=== PATIENT | female | born 1995 | race Caucasian/White ===

== ENCOUNTER 2021-01-07 12:54 | Outpatient (REF) | payer OTHER, SELFPAY ==
[2021-01-09 18:07] LABS: C. trachomatis RNA TMA NOT DETECTED (NOT DETECTED); N. gonorrhoeae RNA TMA NOT DETECTED (NOT DETECTED)
== END 2021-01-07 12:55 | disposition home or self-care (01) ==
LOC: HO.LAB 12:54
PROVIDERS: PCP Pediatrics; Visit Provider Advanced Practice Midwife
DX: Z01.419 Encounter for gynecological examination (general) (routine) without abnormal findings (principal); Z11.3 Encounter for screening for infections with a predominantly sexual mode of transmission
CPT/HCPCS: 36415; 87491; 87591

== ENCOUNTER 2021-05-27 12:57 | Outpatient (REF) | payer OTHER, SELFPAY ==
[2021-05-27 16:10] LABS: CT PCR NOT DETECTED (Not Detect.); NG PCR NOT DETECTED (Not Detect.)
[2021-05-28 08:13] LABS: BV Int Neg Control Negative (Negative); BV Int Pos Control Positive (Positive)
== END 2021-05-27 12:58 | disposition home or self-care (01) ==
LOC: HO.LAB 12:57
PROVIDERS: PCP Pediatrics; Visit Provider Advanced Practice Midwife
DX: Z30.431 Encounter for routine checking of intrauterine contraceptive device (principal); R10.2 Pelvic and perineal pain
CPT/HCPCS: 87480; 87491; 87510; 87591; 87660

== ENCOUNTER 2021-06-17 13:59 | Outpatient (REF) | payer OTHER, SELFPAY ==
--- NOTE | ~2021-06-17 | US_ITS ---
EXAMINATION: US PELVIS TRANSVAGINAL CLINICAL INFORMATION: Pelvic pain. COMPARISON: 06/29/2020 TECHNIQUE: Transcutaneous and transvaginal pelvic ultrasound. Transvaginal scanning was performed after voiding to better evaluate the endometrium and adnexa. FINDINGS: The uterus measures 7.8 x 3.7 x 5.2 cm. The uterus is anteverted. No suspicious abnormalities region of the cervix. The uterine contour is smooth. There is an IUD in place. No focal abnormalities within the myometrium. The right ovary measures approximately 2.8 x 1.6 x 2.0 cm. The calculated right ovarian volume is approximately 4.6 mL. There are no suspicious right adnexal findings. The left ovary measures 4.2 x 2.4 x 3.9 cm. The calculated left ovarian volume is approximately 21 mL. There is a 1.8 x 1.4 x 1.9 cm corpus luteal cyst present. No significant free pelvic fluid. US/US pelvic and transvaginal IMPRESSION: IUD in place appearing unremarkable. Left ovarian corpus luteum cyst.
== END 2021-06-17 14:00 | disposition home or self-care (01) ==
LOC: HO.HMGCX 13:59
PROVIDERS: Visit Provider Advanced Practice Midwife
DX: R10.2 Pelvic and perineal pain (principal)
CPT/HCPCS: 76830; 76856

== ENCOUNTER → 2021-07-01 11:21 | Outpatient (BNVA) | payer OTHER, SELFPAY | PROVIDERS: PCP Pediatrics; Visit Provider Advanced Practice Midwife ==

== ENCOUNTER → 2021-07-05 13:24 | Outpatient (BNVA) | payer OTHER, SELFPAY | PROVIDERS: PCP Pediatrics; Visit Provider Advanced Practice Midwife | DX: Z30.432 Encounter for removal of intrauterine contraceptive device (principal); R10.2 Pelvic and perineal pain; N73.9 Female pelvic inflammatory disease, unspecified | CPT/HCPCS: 58301; 96372; J0696 ==

== ENCOUNTER 2022-02-04 13:43 | Outpatient (REF) | payer OTHER, SELFPAY ==
[2022-02-05 11:11] LABS: BV Int Neg Control Negative (Negative); BV Int Pos Control Positive (Positive)
[2022-02-05 13:10] LABS: CT PCR DETECTED (Not Detect.); NG PCR DETECTED (Not Detect.)
== END 2022-02-04 13:44 | disposition home or self-care (01) ==
LOC: HO.LAB 13:43
PROVIDERS: PCP Pediatrics; Visit Provider Advanced Practice Midwife
DX: Z01.411 Encounter for gynecological examination (general) (routine) with abnormal findings (principal); N73.9 Female pelvic inflammatory disease, unspecified; Z20.2 Contact with and (suspected) exposure to infections with a predominantly sexual mode of transmission
CPT/HCPCS: 81003; 81025; 87480; 87491; 87510; 87591; 87660; 96372; 99212; J0696

== ENCOUNTER 2022-02-24 09:01 | Outpatient (REF) | payer OTHER, SELFPAY ==
[2022-02-25 12:25] LABS: CT PCR DETECTED (Not Detect.); NG PCR DETECTED (Not Detect.)
[2022-02-25 13:16] LABS: BV Int Neg Control Negative (Negative); BV Int Pos Control Positive (Positive)
== END 2022-02-24 09:02 | disposition home or self-care (01) ==
LOC: HO.LAB 09:01
PROVIDERS: Visit Provider Advanced Practice Midwife
DX: Z01.411 Encounter for gynecological examination (general) (routine) with abnormal findings (principal); R10.2 Pelvic and perineal pain; N73.9 Female pelvic inflammatory disease, unspecified; Z20.2 Contact with and (suspected) exposure to infections with a predominantly sexual mode of transmission; A74.9 Chlamydial infection, unspecified; A54.9 Gonococcal infection, unspecified
CPT/HCPCS: 81003; 81025; 87480; 87491; 87510; 87591; 87660; 99212

== ENCOUNTER 2022-03-02 12:52 | Outpatient (REF) | payer OTHER, SELFPAY ==
[2022-03-02 15:48] LABS: Syphilis Screen Nonreactive (Nonreactive)
[2022-03-03 08:25] LABS: ~HepC Num1 0.19 S/CO (0.00-0.79); ~Hepatitis C Antibody Nonreactive (Nonreactive)
[2022-03-03 08:31] LABS: HBsAGNum1 0.13 S/CO (0.00-0.99); HIV AB/AG Nonreactive (Nonreactive); HIV Num 1 0.07 S/CO (0.00-0.99); Hepatitis B Surface Antigen Negative (Negative)
== END 2022-03-02 12:53 | disposition home or self-care (01) ==
LOC: HO.LAB 12:52
PROVIDERS: Visit Provider Advanced Practice Midwife
DX: A54.9 Gonococcal infection, unspecified (principal); A74.9 Chlamydial infection, unspecified; B96.89 Other specified bacterial agents as the cause of diseases classified elsewhere; N73.9 Female pelvic inflammatory disease, unspecified; N76.0 Acute vaginitis
CPT/HCPCS: 36415; 81025; 86780; 86803; 87071; 87077; 87086; 87147; 87185; 87205; 87340; 87389; 96372; 99212; J0696

== ENCOUNTER 2022-04-14 14:09 | Outpatient (REF) | payer OTHER, SELFPAY ==
[2022-04-15 02:31] LABS: CT PCR NOT DETECTED (Not Detect.); NG PCR NOT DETECTED (Not Detect.)
== END 2022-04-14 14:10 | disposition home or self-care (01) ==
LOC: HO.LAB 14:09
PROVIDERS: Visit Provider Obstetrics & Gynecology
DX: A74.9 Chlamydial infection, unspecified (principal); A54.9 Gonococcal infection, unspecified
CPT/HCPCS: 87491; 87591; 99212

== ENCOUNTER 2022-06-20 16:33 | Emergency (ER) | payer OTHER, SELFPAY ==
--- NOTE | ~2022-06-20 | XR_ITS ---
EXAMINATION: XR ANKLE, RIGHT CLINICAL INFORMATION: Right ankle pain after fall. COMPARISON: None TECHNIQUE: AP, lateral, and mortise views of the right ankle. FINDINGS: There is lateral malleolar soft tissue swelling. The ankle mortise and subtalar joints are normal. There is no visible acute fracture, dislocation. Small bone fragment tip of posterior malleolus likely old avulsion injury fragment XR/XR ankle RT 2V IMPRESSION: Lateral malleolar soft tissue swelling most likely ligamentous injury. No visible acute fracture or dislocation seen.
[2022-06-20 18:07] VITALS: BP 105/73; PULSE 78; RESP 18; TEMP 36.3; O2SAT 100; BMI 19.5
--- NOTE | 2022-06-20 19:56 | ED.LOWEXIN ---
HPI - Extremity Injury (Lower) General Chief Complaint: Extremity Injury, Lower Stated Complaint: sprain ankle? right Time Seen by Provider: 06/20/22 19:56 Source: patient Mode of arrival: ambulatory Limitations: no limitations History of Present Illness HPI Narrative: 26-year-old female presents with right-sided ankle pain status post trip and fall and rolling her ankle, patient tells me she was going down the stairs, she rolled her ankle while going down the stairs fell down a few stairs. She tells me she did not hit her head or lose consciousness when this happened. She is not on blood thinners. Since the fall she has been having significant pain and swelling to the right lateral aspect of ankle worsening over the past 2 days. Denies numbness however reports intermittent tingling. Patient has been able to bear weight on the right lower extremity without difficulty over the past 2 days. MD complaint: ankle injury Related Data Previous Rx's Medication Instructions Recorded ibuprofen 600 mg tablet 600 mg PO Q6H PRN pain #100 tabs 02/04/22 ondansetron 4 mg disintegrating 4 mg PO Q8H PRN nausea and 02/04/22 tablet vomiting #60 tabs doxycycline hyclate 100 mg capsule 100 mg PO BID 14 days #28 caps 03/02/22 metronidazole 500 mg tablet 500 mg PO BID 14 days #28 tabs 03/02/22 Allergies Allergy/AdvReac Type Severity Reaction Status Date / Time Seasonal Allergies Allergy Runny Nose Verified 06/20/22 18:10 Review of Systems Review of Systems: Constitutional : No Weight loss, No Fever, No Chills, No Fatigue, No Malaise ENT/Mouth : No sore throat, No Rhinorrhea Eyes: No Eye Pain, No Swelling, No Redness Cardiovascular : No Chest Pain, No SOB, No Dyspnea on Exertion, No Orthopnea, No Edema, No Palpitations Respiratory : No Cough, No Sputum, No Wheezing Gastrointestinal : No Nausea, No Vomiting, No Diarrhea, No Constipation, No abdominal Pain, No Hematochezia, No Melena Genitourinary : No Dysuria, No Urinary Frequency, No Hematuria, Musculoskeletal : + joint pain, No Myalgias, + Joint Swelling Skin : No Skin Lesions, No rash Neuro : No Weakness, No Numbness, No Dizziness, No Headache All other systems reviewed and are negative Yes all other systems are reviewed and are negative PMFSH Past Medical History Attestation statement: The following information was validated with the patient. Source: old records reviewed and nursing notes reviewed Medical History ADHD IUD (intrauterine device) in place Pelvic inflammatory disease (PID) Family History Family History Father Chronic mental illness Mother Asthma Maternal Grandmother Breast cancer Maternal Grandfather HTN (hypertension) Maternal Aunt Breast cancer Social History Social History Alcohol intake: never Patient Tobacco Use Status: Never used Tobacco Advance Directives: No Advance Directives Information Provided: No Sexual orientation: Straight/Heterosexual Gender identity: Female Physical Exam Vital Signs: Vital Signs: Last Vital Signs Temp 97.4 F 06/20/22 18:07 Pulse 78 06/20/22 18:07 Resp 18 06/20/22 18:07 BP 105/73 06/20/22 18:07 Pulse Ox 100 06/20/22 18:07 O2 Del Method 06/20/22 18:07 BMI result Body Mass Index 19.5 vss Appearance: Alert.? Oriented X3.? No acute distress.? Head: Normocephalic, atraumatic, no step-offs or deformities Eyes: Pupils equal, round and reactive to light.? Neck: Normal inspection.? Neck supple.? CVS: Normal heart rate and rhythm.? Pulses normal.? Respiratory: No respiratory distress.? Breath sounds normal.? Abdomen: Soft and nontender.? Skin: Skin warm and dry.? Normal skin color.? Normal skin turgor.? Extremities: No lower extremity edema.? No calf ttp. 5/5 strength to bilateral upper and lower extremities + right ankle with swelling over lateral malleolous 2+ dorsalis pedis, posterior tibialis and anterior tibialis pulses equal bilateral. No footdrop. Normal sensory exam to lower extremities. Capillary refill less than 2 seconds to bilateral lower extremity toes. Neuro: Oriented X 3.? No motor deficit.? No sensory deficit. Patient ambulating with steady gait however limping favoring her left side. Course Reevaluation(s) Reevaluation #1: X-ray of the right ankle with lateral malleolar soft tissue swelling most likely ligamentous injury, educated patient that she will likely require an MRI of pain persist, giving her follow-up for Orthopedics. Will provider with a Aircast, crutches. Advised to return with new or worsening symptoms. At this time I feel comfortable discharge home. I did educate on ibuprofen every 6 hours, Tylenol every 4. I also went over rice with this patient. Time: 20:12 MDM - Extremity Injury (Lower) MDM Narrative Medical decision making narrative: 1953 26-year-old female presents with right ankle pain status post stripping/rolling her ankle yesterday, were now reporting pain, swelling particularly to the lateral aspect of right ankle, able to ambulate however with a limp. Denies numbness or tingling Physical examination with significant swelling over the right lateral malleolus. 2+ dorsalis pedis, posterior tibialis and anterior tibialis pulses. Normal sensory to bilateral lower extremities. Patient ambulating with steady gait however limping favoring the left side. Capillary refill less than 2 seconds to bilateral lower extremities. No footdrop. No evidence of acute ligament or tendon injury. Plan at this time is to obtain an x-ray. Medical Records Attestation: I reviewed the patient's medical records. Lab Data Attestation: I reviewed the patient's lab results. Critical Care Time Critical Care Time Critical Care Time: No Discharge Plan Discharge Clinical Impression: Ankle sprain Patient Disposition: Home, Self-Care Instructions: Ankle Sprain (ED), Crutch Instructions (ED), Sprain (ED), Ankle Stirrup Splint (ED), R.I.C.E. Treatment (ED) Additional Instructions: Take your medications as prescribed. If you were prescribed antibiotics today, it is important that you take your medication to their entirety, do not skip any doses, do not finish them early. Follow-up with your primary care provider this week. Follow orthopedics this week Return to the emergency department with new or worsening symptoms. Such as fevers, chills, chest pain, shortness of breath, nausea, vomiting, dizziness, headache, vision changes, lethargy In case of emergency call 911 You can take ibuprofen every 6 hours tylenol every 4 hours as needed for pain or discomfort Your x-ray results are below, it if you continue to have pain or discomfort may require an MRI to look at ligaments or tendons. Please follow-up with orthopedics. XR/XR ankle RT 2V IMPRESSION: Lateral malleolar soft tissue swelling most likely ligamentous injury. No visible acute fracture or dislocation seen. Prescriptions: No Action ibuprofen 600 mg tablet 600 mg PO Q6H PRN (Reason: pain) Qty: 100 0RF Rx Instructions: always take with food in stomach ondansetron 4 mg tablet,disintegrating 4 mg PO Q8H PRN (Reason: nausea and vomiting) Qty: 60 0RF doxycycline hyclate 100 mg capsule 100 mg PO BID 14 Days Qty: 28 0RF metronidazole 500 mg tablet 500 mg PO BID 14 Days Qty: 28 0RF Referrals: [facility] [place] [facility] [Provider Group] - 1 week Physician,None [Primary Care Provider] - 2 days Stand Alone Forms: Work/School Release
[2022-06-20] MEDS: Ketorolac Tromethamine 15 MG/ML VIAL 30 MG IM (20:50)
== END 2022-06-20 21:00 | disposition home or self-care (01) ==
PROVIDERS: Emergency Provider Internal Medicine
DX: S93.401A Sprain of unspecified ligament of right ankle, initial encounter (principal); W10.9XXA Fall (on) (from) unspecified stairs and steps, initial encounter; Y93.89 Activity, other specified; Y92.9 Unspecified place or not applicable; Y99.9 Unspecified external cause status
CPT/HCPCS: 73600; 96372; 99283; 99284; J1885

== ENCOUNTER → 2022-07-05 09:34 | Outpatient (BNVA) | payer OTHER, SELFPAY | PROVIDERS: Visit Provider Physician Assistant | DX: S93.401A Sprain of unspecified ligament of right ankle, initial encounter (principal); W10.9XXA Fall (on) (from) unspecified stairs and steps, initial encounter; Y93.9 Activity, unspecified; Y92.9 Unspecified place or not applicable; Y99.9 Unspecified external cause status | CPT/HCPCS: 99202 ==

== ENCOUNTER 2022-07-19 10:52 | Outpatient (REF) | payer OTHER, SELFPAY ==
[2022-07-19 15:24] LABS: CT PCR NOT DETECTED (Not Detect.); NG PCR NOT DETECTED (Not Detect.)
== END 2022-07-19 10:53 | disposition home or self-care (01) ==
LOC: HO.LNP 10:52
PROVIDERS: Visit Provider Obstetrics & Gynecology
DX: A74.9 Chlamydial infection, unspecified (principal); Z97.5 Presence of (intrauterine) contraceptive device
CPT/HCPCS: 87491; 87591; 99212

== ENCOUNTER 2023-01-19 10:59 | Outpatient (REF) | payer OTHER, SELFPAY ==
[2023-01-19 16:39] LABS: CT PCR NOT DETECTED (Not Detect.); NG PCR NOT DETECTED (Not Detect.)
[2023-01-20 10:58] LABS: BV Int Neg Control Negative (Negative); BV Int Pos Control Positive (Positive)
== END 2023-01-19 11:00 | disposition home or self-care (01) ==
LOC: HO.LNP 10:59
PROVIDERS: Visit Provider Advanced Practice Midwife
DX: Z01.419 Encounter for gynecological examination (general) (routine) without abnormal findings (principal); N73.9 Female pelvic inflammatory disease, unspecified; A74.9 Chlamydial infection, unspecified; A54.9 Gonococcal infection, unspecified; N76.0 Acute vaginitis; B96.89 Other specified bacterial agents as the cause of diseases classified elsewhere
CPT/HCPCS: 0353U; 87480; 87510; 87660; 88142

== ENCOUNTER 2023-08-25 15:22 | Outpatient (REF) | payer OTHER, SELFPAY ==
[2023-08-26 15:34] LABS: BV Int Neg Control Negative (Negative); BV Int Pos Control Positive (Positive)
== END 2023-08-25 15:23 | disposition home or self-care (01) ==
LOC: HO.LNP 15:22
PROVIDERS: Visit Provider Advanced Practice Midwife
DX: R10.2 Pelvic and perineal pain (principal); Z20.2 Contact with and (suspected) exposure to infections with a predominantly sexual mode of transmission; Z30.09 Encounter for other general counseling and advice on contraception
CPT/HCPCS: 81002; 81025; 87480; 87510; 87660; 99212

== ENCOUNTER 2023-08-25 15:22 | Outpatient (AMB) | payer OTHER, SELFPAY ==
--- NOTE | 2023-08-25 15:40 | A.OFFVIS_ITS ---
Intake Vital Signs 08/25/23 15:47 Height 5 ft Weight 86 lb BMI 16.8 BP 102/60 Intake Visit Reasons: pelvic pain Intake Note: c/o of pelvic pain x 3 days The patient agreed to use of a medical office coordinator during this encounter. Scribed for SONNY Muniz by Pat Pleitez medical office coordinator, on 08/25/2023 at 3:57 pm EST. Commercial Floor Covering Installer Required: No Information Interpreted: non-clinical & clinical Tube Bender Hand: Tube Bender Hand Present (Divya Fairchildthania SCOTT) Accompanied by: Self / Same As Patient Allergies Seasonal Allergies Allergy (Verified 08/25/23 15:48) Runny Nose Is last menstrual period known: Yes Last menstrual period: 07/29/23 HPI HPI Comments History of Present Illness Details She is here today with complaints of pelvic pain with cramping with urinating for 3 days. Reports menses is due tomorrow. Admits vaginal discharge and urinary symptoms. UPI last night with new partner; does not use BC. Regular monthly menses. LMP 07/29/23. HX of PID in 2021. 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 Sexual orientation: Straight/Heterosexual Gender identity: Female Female Reproductive History Menstrual Age of Menarche: 14 Date of last menstrual period: 07/29/23 Physical Exam Vital Signs: Last Vital Signs BP 102/60 08/25/23 15:47 BMI result Body Mass Index 16.8 Const General: cooperative, healthy appearing, comfortable, no acute distress, well de veloped, alert and awake Other: General: Yes bladder normal to palpation External Female Exam: normal external appearance and normal appearance of the urethra Speculum Exam - Vagina: normal appearance of the vagina, normal palpation and abnormal vaginal discharge yellow (pale) Speculum Exam - Cervix: normal appearance of the cervix and normal palpation Bimanual exam- vagina & uterus: normal bimanual exam, normal palpation, bladder normal to palpation and normal palpation Bimanual Exam- Adnexa, other: normal adnexae, no masses and Other (slightly tender) Results AMB Test Urine AMB Test Urine Negative Last Edit by Divya Munson, [facility] on 15:57 AMB Urinalysis Dipstick UR Leukocytes Negative Last Edit by Divya Fairchildero, ASSOCIATE PROFESSOR OF PHILOSOPHY on 08/25/23 15:58 UR Nitrite Negative Last Edit by Divya Munson, ASSOCIATE PROFESSOR OF PHILOSOPHY on 08/25/23 15:58 UR Urobilinogen Normal Last Edit by Divya Fairchildero, [facility] on 08/25/23 15:58 UR Protein Negative Last Edit by Divya Fairchildero, [facility] on 08/25/23 15:58 UR Ph 5.5 Last Edit by Divya Fairchildero, [facility] on 08/25/23 15:58 UR Blood Negative Last Edit by Divya Fairchildero, [facility] on 08/25/23 15:58 UR Specific [place] 1.030 Last Edit by Divya Munson, [facility] on 08/25/23 15:58 UR Ketone Negative Last Edit by Divya Munson, ASSOCIATE PROFESSOR OF PHILOSOPHY on 08/25/23 15:58 UR Bilirubin Negative Last Edit by Divya Munson, [facility] on 08/25/23 15:58 UR Glucose Negative Last Edit by Divya Munson, [facility] on 08/25/23 15:58 Results Reviewed Results Reviewed: Laboratory Last Values Urine pH (Clinic) 5.5 08/25/23 15:57 Specific [place] (Clinic) 1.030 08/25/23 15:57 Ur Protein (Clinic) Negative 08/25/23 15:57 Ur Ketones (Clinic) Negative 08/25/23 15:57 Urine Blood (Clinic) Negative 08/25/23 15:57 Urine Nitrite Negative 08/25/23 15:57 Urine Bilirubin (Clinic) Negative 08/25/23 15:57 Urobilinogen (Clinic) Normal 08/25/23 15:57 Leukocyte Esterase (Clinic) Negative 08/25/23 15:57 Urine Glucose (Clinic) Negative 08/25/23 15:57 Tst Clinic Negative 08/25/23 15:57 Assessment & Plan Assessment & Plan (1) Pelvic pain: Code(s): R10.2 - Pelvic and perineal pain Plan: Discussed: BV testing and GC/CT panel done today. STD blood work ordered. Await results and treat accordingly. If experiencing severe pain or fever/flu-like symptoms report to ED. If missed menses by next week take at home test. RTO to office if worsening symptoms. All of her questions and concerns were addressed to the best of my ability and shared decision making. She is agreeable to plan of care. (2) control counseling: Code(s): Z30.09 - Encounter for other general counseling and advice on contraception Plan: Advised to use condoms for STD and prevention. Schedule BC consult. Orders: Orders AMB Urinalysis Dipstick Today Z32.02 - Encounter for test, result negative Bacterial Vaginosis Panel Today R10.2 - Pelvic and perineal pain, Z20.2 - Contact with and (suspected) exposure to infections with a predominantly sexual mode of transmission Hepatitis C Antibody Today Z20.2 - Contact with and (suspected) exposure to infections with a predominantly sexual mode of transmission Syphilis Screen Today Z20.2 - Contact with and (suspected) exposure to infections with a predominantly sexual mode of transmission AMB HCG Urine Test Today Z32.02 - Encounter for test, result negative CT NG by PCR Today R10.2 - Pelvic and perineal pain, Z20.2 - Contact with and (suspected) exposure to infections with a predominantly sexual mode of transmission Hepatitis B Core Antibody Today Z20.2 - Contact with and (suspected) exposure to infections with a predominantly sexual mode of transmission HIV Ab/Ag Today Z20.2 - Contact with and (suspected) exposure to infections with a predominantly sexual mode of transmission Coding Level of Care Code Est Pt Level 3 (14941) Diagnoses Pelvic pain R10.2 control counseling Z30.09
[2023-08-25 15:47] VITALS: BP 102/60; BMI 16.8
== END 2023-08-25 16:13 | disposition home or self-care (01) ==
PROVIDERS: Visit Provider Advanced Practice Midwife
DX: R10.2 Pelvic and perineal pain (principal); Z30.09 Encounter for other general counseling and advice on contraception; Z32.02 Encounter for pregnancy test, result negative
CPT/HCPCS: 99213

== ENCOUNTER 2023-08-25 16:17 | Outpatient (REF) | payer OTHER, SELFPAY ==
[2023-08-28 07:54] LABS: Syphilis Screen Nonreactive (Nonreactive)
[2023-08-28 08:14] LABS: HBsAGNum1 0.38 S/CO (0.00-0.99); Hepatitis B Surface Antigen Negative (Negative)
[2023-08-28 08:17] LABS: HBc Num1 0.05 S/CO (0.00-0.79); HIV AB/AG Nonreactive (Nonreactive); HIV Num 1 0.07 S/CO (0.00-0.99); Hepatitis B Core Antibody Nonreactive (Nonreactive); ~HepC Num1 0.09 S/CO (0.00-0.79); ~Hepatitis C Antibody Nonreactive (Nonreactive)
== END 2023-08-25 16:18 | disposition home or self-care (01) ==
LOC: HO.LAB 16:17
PROVIDERS: Advanced Practice Midwife; Visit Provider Advanced Practice Midwife
DX: N73.9 Female pelvic inflammatory disease, unspecified (principal); A74.9 Chlamydial infection, unspecified; A54.9 Gonococcal infection, unspecified; N76.0 Acute vaginitis; B96.89 Other specified bacterial agents as the cause of diseases classified elsewhere; Z20.2 Contact with and (suspected) exposure to infections with a predominantly sexual mode of transmission
CPT/HCPCS: 36415; 86704; 86780; 86803; 87340; 87389

== ENCOUNTER 2023-09-21 14:37 | Outpatient (AMB) | payer OTHER, SELFPAY ==
[2023-09-21 14:51] VITALS: BP 112/76; BMI 19.1
--- NOTE | 2023-09-21 14:51 | MHC.OFFVIS ---
Intake Vital Signs 09/21/23 14:51 Height 5 ft Weight 98 lb BMI 19.1 BP 112/76 Intake Visit Reasons: pelvic pain/AUB/30 min Intake Note: Scribed for Bela Ibanez CNM by [facility] scribe, on 09/21/2023 at 3:13 PM, EST. Cone Baker Machine: Cone Baker Machine Present (Silvia) Allergies Seasonal Allergies Allergy (Verified 09/21/23 15:02) Runny Nose Is last menstrual period known: Yes Last menstrual period: 09/11/23 HPI HPI Comments History of Present Illness Details The patient is a 27 year old presenting with pelvic pain and irregular menses Her irregular menses just started this month. She is concerned for PCOS, she also reports acne. She reports having two menses for this month, with prolonged bleeding. She denies any UPI in the last two weeks. She is not taking anything for BC at this time. Would like to be started on oral contraceptives. She denies any contraindications to control such as: migraines with aura, history of DVT or pulmonary emboli, high blood pressure, liver disease, thrombolic disorders, Lupus, +JERRY, or smoking. 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 Sexual orientation: Straight/Heterosexual Gender identity: Female Female Reproductive History Menstrual Age of Menarche: 14 Date of last menstrual period: 09/11/23 Review of Systems Const All systems reviewed & are unremarkable except as noted in HPI and below Physical Exam Vital Signs: Last Vital Signs BP 112/76 09/21/23 14:51 BMI result Body Mass Index 19.1 Const General: cooperative, healthy appearing and no acute distress Orientation/consciousness: patient oriented x3 GI Inspection: Yes normal to inspection Palpation (GI): Soft to palpation and Other GI palpation findings present (Nontender) Rectal Exam - Female: visual inspection normal General: Yes bladder normal to palpation External Female Exam: normal appearance of the urethra Speculum Exam - Vagina: normal appearance of the vagina, normal palpation and normal vaginal discharge Speculum Exam - Cervix: normal appearance of the cervix and normal palpation Bimanual exam- vagina & uterus: normal bimanual exam, normal palpation, uterine size normal, bladder normal to palpation, normal palpation, uterine shape normal and non-tender Bimanual Exam- Adnexa, other: normal adnexae and Other (cystic fullness in right adnexa, slightly tender) Neuro General: patient oriented x3 Results AMB Urinalysis, Automated UA Leukoctes 0 Marivel/uL Last Edit by Adelina Rodriguez Sofia on 09/21/23 15:11 UA Nitrite Negative Last Edit by Adelina Rodriguez [facility] on 09/21/23 15:11 UA Urobilinogen 0 mg/dL Last Edit by Adelina Rodriguez [facility] on 09/21/23 15:11 UA Protein 0 mg/dL Last Edit by Adelina Rodriguez [facility] on 09/21/23 15:11 UA pH 7.0 Last Edit by Adelina Rodriguez [facility] on 09/21/23 15:11 UA Blood 2 Dangelo/uL Last Edit by Adelina Rodriguez [facility] on 09/21/23 15:11 UA Specific [place] 1.010 Last Edit by Adelina Rodriguez [facility] on 09/21/23 15:11 UA Ketone Negative Last Edit by Adelina Rodriguez Sofia on 09/21/23 15:11 UA Bilirubin 0 mg/dL Last Edit by Adelina Rodriguez [facility] on 09/21/23 15:11 UA Glucose 0 mg/dL Last Edit by Adelina Rodriguez Sofia on 09/21/23 15:11 AMB Test Urine AMB Test Urine Negative Last Edit by Adelina Rodriguez [facility] on 09/21/23 15:11 Results Reviewed Results Reviewed: Laboratory Last Values Urine pH (Auto) 7.0 09/21/23 15:09 Specific [place] (Auto) 1.010 09/21/23 15:09 Urine Protein (Auto) 0 mg/dL 09/21/23 15:09 Glucose (UA)(Auto) 0 mg/dL 09/21/23 15:09 Urine Ketones (Auto) Negative 09/21/23 15:09 Urine Blood (Auto) 2 Dangelo/uL 09/21/23 15:09 Urine Nitrite (Auto) Negative 09/21/23 15:09 Urine Bilirubin (Auto) 0 mg/dL 09/21/23 15:09 Urine Urobilinogen (Auto) 0 mg/dL 09/21/23 15:09 Leukocyte Esterase (Auto) 0 Marivel/uL 09/21/23 15:09 Tst Clinic Negative 09/21/23 15:09 Assessment & Plan Assessment & Plan (1) Pelvic pain in female: Code(s): R10.2 - Pelvic and perineal pain Plan: Rx for Ultrasound due to irregular menses and right sided pelvic fullness. Work up for PCOS with labs and ultrasound. All questions and concerns addressed to the best of my ability. She is agreeable to the plan of care. RTO for test results in person. If any increase in sever pain report to the ED for further evaluation, use of OTC self help measures if needed including a heating pad. (2) Irregular menstrual cycle: Code(s): N92.6 - Irregular menstruation, unspecified (3) control counseling: Code(s): Z30.09 - Encounter for other general counseling and advice on contraception Plan: Control Counseling Use and side effects of control: Instructed to start the pill within the first 5 days of the menstrual period. Recommended to take pill at same time every day and with food to prevent stomach upset. Switch to bedtime intake with food if still experiencing nausea. Consider setting the cell phone for alerts as a reminder to take the pill at the same time. Use a back up method (condoms or abstinence if needed) if any late or missed doses until the end of the pill pack. Take the dose as soon as possible, and take your regular pill on time. If you miss the pill often, then consider another option of control. Always use condoms for STI prevention if indicated. Instructed patient to take for at least 3 months the body is acclimated to it. Most side effects go away with time in the first three months. Warnings: go to ED if and loss of vision/blindness, severe headache, chest pain or difficulty breathing, severe abdominal pain, or any pain or swelling in an extremity. Return in 3 months for pill check, or sooner if any concerns. All of her questions and concerns were addressed to the best of my ability and shared decision making. She is agreeable to plan of care. Orders: Orders AMB Urinalysis Automated Today N93.9 - Abnormal uterine and vaginal bleeding, unspecified, R10.2 - Pelvic and perineal pain Testosterone, Free/Total Today L70.9 - Acne, unspecified, N92.6 - Irregular menstruation, unspecified 17 Hydroxyprogesterone Today L70.9 - Acne, unspecified, N92.6 - Irregular menstruation, unspecified Prolactin Today L70.9 - Acne, unspecified, N92.6 - Irregular menstruation, unspecified DHEA Sulfate Today L70.9 - Acne, unspecified, N92.6 - Irregular menstruation, unspecified Thyroid Stimulating Hormone Today L70.9 - Acne, unspecified, N92.6 - Irregular menstruation, unspecified AMB HCG Urine Test Today N93.9 - Abnormal uterine and vaginal bleeding, unspecified, R10.2 - Pelvic and perineal pain US pelvic and transvaginal Today R10.2 - Pelvic and perineal pain, R19.00 - Intra-abdominal and pelvic swelling, mass and lump, unspecified site Bacterial Vaginosis Panel Today L70.9 - Acne, unspecified, N92.6 - Irregular menstruation, unspecified, N93.9 - Abnormal uterine and vaginal bleeding, unspecified, R10.2 - Pelvic and perineal pain CT NG by PCR Today L70.9 - Acne, unspecified, N92.6 - Irregular menstruation, unspecified, N93.9 - Abnormal uterine and vaginal bleeding, unspecified, R10.2 - Pelvic and perineal pain Coding Level of Care Code Est Pt Level 4 (92085) Diagnoses Pelvic pain in female R10.2 Irregular menstrual cycle N92.6 control counseling Z30.09
== END 2023-09-21 15:47 | disposition home or self-care (01) ==
PROVIDERS: Visit Provider Advanced Practice Midwife
DX: R10.2 Pelvic and perineal pain (principal); N92.6 Irregular menstruation, unspecified; Z30.09 Encounter for other general counseling and advice on contraception; N93.9 Abnormal uterine and vaginal bleeding, unspecified
CPT/HCPCS: 99214

== ENCOUNTER 2023-09-21 14:37 | Outpatient (REF) | payer OTHER, SELFPAY | END 2023-09-21 14:38 | disposition home or self-care (01) | LOC: HO.LAB 14:37 | PROVIDERS: Visit Provider Advanced Practice Midwife | DX: R10.2 Pelvic and perineal pain (principal); N92.6 Irregular menstruation, unspecified; L70.9 Acne, unspecified; R19.00 Intra-abdominal and pelvic swelling, mass and lump, unspecified site; N93.9 Abnormal uterine and vaginal bleeding, unspecified; Z30.09 Encounter for other general counseling and advice on contraception; Z32.00 Encounter for pregnancy test, result unknown | CPT/HCPCS: 81003; 81025; 99212 ==

== ENCOUNTER 2023-09-21 15:21 | Outpatient (REF) | payer OTHER, SELFPAY | END 2023-09-21 15:22 | disposition home or self-care (01) | LOC: HO.LNP 15:21 | PROVIDERS: Visit Provider Advanced Practice Midwife | DX: Z13.89 Encounter for screening for other disorder (principal) ==

== ENCOUNTER 2023-09-21 15:38 | Outpatient (REF) | payer OTHER, SELFPAY ==
[2023-09-21 16:58] LABS: Thyroid Stimulating Hormone 4.44 uIU/mL (0.32-4.0)
[2023-09-22 08:07] LABS: Syphilis Screen Nonreactive (Nonreactive)
[2023-09-22 08:08] LABS: HIV AB/AG Nonreactive (Nonreactive); HIV Num 1 0.06 S/CO (0.00-0.99); ~HepC Num1 0.08 S/CO (0.00-0.79); ~Hepatitis C Antibody Nonreactive (Nonreactive)
[2023-09-22 10:57] LABS: CT PCR NOT DETECTED (Not Detect.); NG PCR NOT DETECTED (Not Detect.)
[2023-09-22 13:14] LABS: BV Int Neg Control Negative (Negative); BV Int Pos Control Positive (Positive)
[2023-09-22 18:19] LABS: DHEA Sulfate 115 mcg/dL (14-349); Prolactin 10.5 ng/mL
[2023-09-26 14:14] LABS: Testosterone, Free 3.1 pg/mL (0.1-6.4); Testosterone, Total 23 ng/dL (2-45)
== END 2023-09-21 15:39 | disposition home or self-care (01) ==
LOC: HO.LAB 15:38
PROVIDERS: Advanced Practice Midwife; Visit Provider Advanced Practice Midwife
DX: Z01.419 Encounter for gynecological examination (general) (routine) without abnormal findings (principal); N73.9 Female pelvic inflammatory disease, unspecified; A74.9 Chlamydial infection, unspecified; A54.9 Gonococcal infection, unspecified; N76.0 Acute vaginitis; B96.89 Other specified bacterial agents as the cause of diseases classified elsewhere; R10.2 Pelvic and perineal pain; N93.9 Abnormal uterine and vaginal bleeding, unspecified; L70.9 Acne, unspecified; N92.6 Irregular menstruation, unspecified; Z20.2 Contact with and (suspected) exposure to infections with a predominantly sexual mode of transmission
CPT/HCPCS: 0353U; 36415; 82627; 83498; 84146; 84402; 84403; 84443; 86780; 86803; 87389; 87480; 87510; 87660

== ENCOUNTER 2023-09-22 12:00 | Outpatient (AMB) | payer OTHER, SELFPAY ==
--- NOTE | 2023-09-22 12:12 | MHC.OFFWIV ---
Intake Vital Signs 09/22/23 12:14 Height 5 ft Weight 94 lb 6 oz BMI 18.4 BP 122/74 Blood Pressure Location Rt brachial Position Sitting Pulse 74 Pulse Source Pulse Oximeter Pulse Oximetry (%) 97 Oxygen Delivery Method Room Air Intake Visit Reasons: EST/chest pain (lobby) Intake Note: pt is here for c.o chest pain Monday, states she does not currently have chest pain only happened on monday. Patient Tobacco Use Status: Never used Tobacco Allergies Seasonal Allergies Allergy (Verified 09/22/23 12:16) Runny Nose Do you need a note to return to daycare/school/sports/work: Yes HPI HPI Comments History of Present Illness Details This is a 27-year-old female with no significant past medical history who presents to the office today for sick visit. Patient complaining of an episode of chest pain that occurred 2 nights ago. Patient states that she was today at the kitchen table eating dinner when she started to develop substernal chest pain without radiation associated shortness of breath, nausea, and diaphoresis. She states she was feeling slightly anxious as she has had a lot of life stressors lately. She states this lasted for several minutes and resolved spontaneously without intervention. Patient states she has not had any further episodes of chest pain since then. She states she called her OBGYN who told her she could have had a blood clot, which made her anxious so she came for further evaluation and management. Patient denies any history of hypertension, hyperlipidemia, or diabetes mellitus. Her mother at bedside reports a family history of heart disease. Patient has had no prior episodes of chest pain and has had no episodes of chest pain since 2 nights ago. Patient does not utilize estrogen therapy at this time. She has had no recent travel, surgeries, or immobilization. She has had no lower extremity swelling. [facility] Medical History Pelvic inflammatory disease (PID) ADHD Family History Father Chronic mental illness Mother Asthma Maternal Grandmother Breast cancer Maternal Grandfather HTN (hypertension) Maternal Aunt Breast cancer Social History Alcohol intake: current Alcohol intake frequency: holidays/special occasions only Patient Tobacco Use Status: Never used Tobacco Current occupational status: employed Current occupation: [employer] Sexual orientation: Straight/Heterosexual Gender identity: Female Female Reproductive History Menstrual Age of Menarche: 14 Review of Systems Const All systems reviewed & are unremarkable except as noted in HPI and below Reports no additional complaints Eyes Reports no additional complaints ENT Reports no additional complaints Card Reports no additional complaints Resp Reports no additional complaints GI Reports no additional complaints Reports no additional complaints Musc Reports no additional complaints Skin/Breast Reports system reviewed and no additional complaints, except as documented Neuro Reports no additional complaints Psych Reports no additional complaints Endo Reports no additional complaints Sebastián/Lymph Reports no additional complaints Aller/Immun Reports no additional complaints Physical Exam Vital Signs: Last Vital Signs Pulse 74 09/22/23 12:14 BP 122/74 09/22/23 12:14 Pulse Ox 97 09/22/23 12:14 Oxygen Delivery Method Room Air 09/22/23 12:14 BMI result Body Mass Index 18.4 Const Other: Vital signs reviewed. Constitutional: Non-toxic appearing. No acute distress. Well-developed and well-nourished. HEENT: Normocephalic and atraumatic. Tympanic membranes without erythema, edema, or bulging bilaterally. External auditory canals without erythema or edema bilaterally. Moist mucous membranes. No pharyngeal erythema or exudates. Skin: Warm and dry. No rashes or lesions noted. Neck: Full and painless range of motion. No cervical lymphadenopathy. Cardio: Regular rate and rhythm. No murmurs, gallops, or rubs. No lower extremity edema. No JVD. Pulmonary: No respiratory distress. No accessory muscle usage. Clear to auscultation bilaterally without wheezing, crackles, or rhonchi. Gastrointestinal: Soft, nontender, and nondistended in all 4 quadrants. Normoactive bowel sounds in all 4 quadrants. Genitourinary: No CVA tenderness. Musculoskeletal: Normal range of motion in joints throughout the body. No deformity or other signs of injury. Neuro: Alert and oriented x4. Cranial nerves 2-12 grossly intact. No focal deficits appreciated. Psych: Normal mood and affect. Office Procedures EKG Details: Normal sinus rhythm, no acute STT wave changes, no acute ischemic changes. Normal EKG. 29875-Trcrlzodjgmankeip, Complete Assessment & Plan Assessment & Plan (1) Anxiety: Code(s): F41.9 - Anxiety disorder, unspecified (2) Chest pain: Code(s): R07.9 - Chest pain, unspecified Plan This is a 27-year-old female who presents to the office complaining of an episode of chest pain 2 days ago. She states the episode occurred while she was eating dinner and she was feeling slightly anxious. She states this chest pain was substernal, non-radiating, non-exertional but it was associated with shortness of breath, nausea, and diaphoresis. This episode lasted for several minutes and resolved spontaneously without intervention. She has had no further episodes of chest pain since then. Patient is able to be PERC ruled out so I have very low suspicion for pulmonary embolism. I am unable to check a troponin but regardless of a troponin results, patient has a low heart score conferring a 0.9-1.7% risk of major adverse cardiac event. I believe patient's symptoms were very likely related to an anxiety attack. I have very low suspicion for any acute or emergent life-threatening conditions such as pulmonary embolism or acute coronary syndrome. Patient was instructed to follow-up with her primary care physician to discuss anti-anxiety medications. She has established care with this office and has an appointment in January 2024. She was encouraged to proceed directly to the emergency room if she were to develop similar symptoms again so they can perform bloodwork and an EKG while her symptoms are happening. Patient verbalized understanding and is agreeable with the plan. Orders: Orders AMB EKG-In Office Today R07.9 - Chest pain, unspecified Coding Level of Care Code Est Pt Level 3 (93067) Diagnoses Anxiety F41.9 Chest pain R07.9 CPT Codes EKG - CPT: 25334-[id number], Complete ([id number])
[2023-09-22 12:14] VITALS: BP 122/74; PULSE 74; O2SAT 97; BMI 18.4
== END 2023-09-22 13:09 | disposition home or self-care (01) ==
PROVIDERS: Visit Provider Physician Assistant Medical
DX: F41.9 Anxiety disorder, unspecified (principal); R07.9 Chest pain, unspecified
CPT/HCPCS: 93000; 99213

== ENCOUNTER 2023-10-12 16:27 | Outpatient (REF) | payer OTHER, SELFPAY ==
--- NOTE | ~2023-10-12 | US_ITS ---
EXAMINATION: US PELVIS CLINICAL INFORMATION: Pelvic and perineal pain LMP 09/11/2023 COMPARISON: Pelvic ultrasound 06/17/2021 TECHNIQUE: Ultrasound of the pelvis is performed using both transabdominal and transvaginal transducers along with Doppler. Transvaginal imaging is performed due to inadequate visualization transabdominally. FINDINGS: Uterus: The uterus is anteverted and measures 8.3 x 3.9 x 5.2 cm. No focal fibroid. The endometrial thickness is 0.8 mm. Question 0.8 x 0.7 x 0.4 cm endometrial polyp. Adnexa: There is no ovarian torsion. There is no pelvic ascites or fluid collection. Right ovary measures 3.9 x 2.1 x 2.4 cm. Volume 10.3 mL. Question resolving 1.7 x 1.1 x 1.3 cm corpus luteum. Left ovary measures 2.4 x 2.1 x 2.2 cm. Volume 5.8 mL. 0.7 x 0.6 x 0.7 cm small versus resolving resolving hemorrhagic cyst. US/US pelvic and transvaginal IMPRESSION: 1. Question of 0.8 cm endometrial polyp. 2. Question of resolving 1.7 cm corpus luteum in the right ovary. 3. 0.7 cm small versus resolving hemorrhagic cyst in the left ovary.
== END 2023-10-12 16:28 | disposition home or self-care (01) ==
LOC: HO.US 16:27
PROVIDERS: Visit Provider Advanced Practice Midwife
DX: R10.2 Pelvic and perineal pain (principal); R19.00 Intra-abdominal and pelvic swelling, mass and lump, unspecified site
CPT/HCPCS: 76830; 76856

== ENCOUNTER 2023-12-06 07:43 | Outpatient (AMB) | payer OTHER, SELFPAY ==
[2023-12-06 07:45] VITALS: BP 100/60; BMI 19.5
--- NOTE | 2023-12-06 07:45 | MHC.OFFVIS ---
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 She reports irregular menses having 2 periods recently in 1 month they were spaced out the beginning at the end of the month. She has currently not sexually active. She is interested in control but is undecided which product she wants at this time. 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 Sexual orientation: Straight/Heterosexual Gender identity: Female Female Reproductive History Menstrual Age of Menarche: 14 Date of last menstrual period: 11/11/23 Review of Systems Const All systems reviewed & are unremarkable except as noted in HPI and below Endo Reports no additional complaints Physical Exam Vital Signs: Last Vital Signs BP 100/60 12/06/23 07:45 BMI result Body Mass Index 19.5 Const General: cooperative, healthy appearing and no acute distress Psych Appearance: well kempt Attitude: cooperative Thought process: Normal thought process present Results Reviewed Results Reviewed: [address] [address] Ultrasound Report Signed Patient: Zuly Yuan MR#: [id number] : 1995 Acct:[id number] Age/Sex: 27 / F ADM Date: 10/12/23 Loc: HO.US Attending Dr: Bela Ibanez CNM Ordering Physician: Bela Ibanez CNM Date of Service: 10/12/23 Procedure(s): US pelvic and transvaginal Accession Number(s): [id number] cc: Bela Ibanez CNM~ EXAMINATION: US PELVIS CLINICAL INFORMATION: Pelvic and perineal pain LMP 09/11/2023 COMPARISON: Pelvic ultrasound 06/17/2021 TECHNIQUE: Ultrasound of the pelvis is performed using both transabdominal and transvaginal transducers along with Doppler. Transvaginal imaging is performed due to inadequate visualization transabdominally. FINDINGS: Uterus: The uterus is anteverted and measures 8.3 x 3.9 x 5.2 cm. No focal fibroid. The endometrial thickness is 0.8 mm. Question 0.8 x 0.7 x 0.4 cm endometrial polyp. Adnexa: There is no ovarian torsion. There is no pelvic ascites or fluid collection. Right ovary measures 3.9 x 2.1 x 2.4 cm. Volume 10.3 mL. Question resolving 1.7 x 1.1 x 1.3 cm corpus luteum. Left ovary measures 2.4 x 2.1 x 2.2 cm. Volume 5.8 mL. 0.7 x 0.6 x 0.7 cm small versus resolving resolving hemorrhagic cyst. US/US pelvic and transvaginal IMPRESSION: 1. Question of 0.8 cm endometrial polyp. 2. Question of resolving 1.7 cm corpus luteum in the right ovary. 3. 0.7 cm small versus resolving hemorrhagic cyst in the left ovary. 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 Advised a consult for hysteroscopy with Dr. Aguilar. Reviewed TSH: Patient has a primary care follow-up in January and labs ordered to repeat. She is considering control options unsure of what she would like to do- control options booklet given to review, advised to call for a consult appointment when ready. Her 2 young children were in the office today due to snow delay which was difficult to manage a conversation. Offered her a tele visit for a follow-up if necessary. All of her questions and concerns were addressed to the best of my ability and shared decision making. She is agreeable to the plan of care. Coding Level of Care Code Est Pt Level 3 (91502) Diagnoses Irregular menstrual cycle N92.6 Encounter to discuss test results Z71.2 Endometrial polyp N84.0 Abnormal thyroid blood test R79.89
== END 2023-12-06 08:15 | disposition home or self-care (01) ==
PROVIDERS: Visit Provider Advanced Practice Midwife
DX: N92.6 Irregular menstruation, unspecified (principal); Z71.2 Person consulting for explanation of examination or test findings; N84.0 Polyp of corpus uteri; R79.89 Other specified abnormal findings of blood chemistry
CPT/HCPCS: 99213

== ENCOUNTER → 2023-12-06 07:43 | Outpatient (BNVA) | payer OTHER, SELFPAY | PROVIDERS: Visit Provider Advanced Practice Midwife | DX: Z71.2 Person consulting for explanation of examination or test findings (principal); N92.6 Irregular menstruation, unspecified; N84.0 Polyp of corpus uteri; R79.89 Other specified abnormal findings of blood chemistry | CPT/HCPCS: 99212 ==

== ENCOUNTER 2024-01-04 07:16 | Outpatient (AMB) | payer OTHER, SELFPAY ==
--- NOTE | 2024-01-04 07:22 | A.OFFVIS_ITS ---
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 Pelvic ultrasound done on 10/12/2023 showed the following: Uterus: The uterus is anteverted and measures 8.3 x 3.9 x 5.2 cm. No focal fibroid. The endometrial thickness is 0.8 mm. Question 0.8 x 0.7 x 0.4 cm endometrial polyp. Adnexa: There is no ovarian torsion. There is no pelvic ascites or fluid collection. Right ovary measures 3.9 x 2.1 x 2.4 cm. Volume 10.3 mL. Question resolving 1.7 x 1.1 x 1.3 cm corpus luteum. Left ovary measures 2.4 x 2.1 x 2.2 cm. Volume 5.8 mL. 0.7 x 0.6 x 0.7 cm small versus resolving resolving hemorrhagic cyst. The patient is complaining of irregular heavy menstrual cycles associated with pelvic cramping GC/CT were negative Last Pap smear in 02/02 was negative [facility] Medical History Pelvic inflammatory disease (PID) ADHD Family History Father Chronic mental illness Mother Asthma Maternal Grandmother Breast cancer Maternal Grandfather HTN (hypertension) Maternal Aunt Breast cancer Social History Alcohol intake: current Alcohol intake frequency: holidays/special occasions only Patient Tobacco Use Status: Never used Tobacco Current occupational status: employed Current occupation: [employer] Sexual orientation: Straight/Heterosexual Gender identity: Female Female Reproductive History Menstrual Age of Menarche: 14 Date of last menstrual period: 12/10/23 Total pregnancies: 2 Full term: 2 Review of Systems Card Reports as per HPI and Reports no additional complaints Resp Reports as per HPI and Reports no additional complaints GI Reports as per HPI and Reports no additional complaints Reports as per HPI Physical Exam Const General: cooperative, healthy appearing and comfortable Chest Chest palpation & inspection: normal inspection of the chest and normal palpation of entire chest wall Breast/axilla inspection: normal inspection of the breasts and normal inspection of the axillae Breast/axilla palpation: normal palpation of the breasts, normal palpation of the axillae and no axillary lymphadenopathy Resp Effort & Inspection: normal respiratory effort Auscultation: clear to auscultation bilaterally Percussion: percussion normal Cardio Palpation: normal PMI Rate: regular rate Rhythm: regular rhythm Heart sounds: no murmurs and no rubs Peripheral pulses: Peripheral pulses 2+ throughout GI Inspection: Yes normal to inspection Palpation (GI): Soft to palpation, nontender, no guarding, not rigid and No hepatosplenomegaly present Percussion: Yes normal to percussion Auscultation: normal bowel sounds Rectal Exam - Female: deferred Assessment & Plan Assessment & Plan (1) Polyp of endometrium: Code(s): N84.0 - Polyp of corpus uteri Plan: Discussed with the patient the finding on ultrasound showing a possible endometrial polyp, recommended hysteroscopy D&C possible polypectomy/myomectomy. Discussed with the patient the procedure , all benefits and risks including but not limited to inability to complete the procedure , insufficient endometrial tissue for a complete evaluation of the endometrial cavity , bleeding, infection, possible need for blood transfusion with all its risk ( HIV,syphilis, Hepatitis, anaphylaxis shock, others..), injury to bladder, rectum, possible need for laparoscopy/laparotomy or hysterectomy. The patient verbalized understanding and signed the consent. Instructions given the patient to schedule a 2 week postoperative appointment (2) Abnormal uterine bleeding: Code(s): N93.9 - Abnormal uterine and vaginal bleeding, unspecified Plan: CBC, TSH, prolapse HCG, . Discussed with the patient the different causes of abnormal bleeding including thyroid disorders, uterine and ovarian pathology other potential causes. Discussed with the patient the work up including CBC (to r/o anemia), TSH, prolactin, hCG pelvic. All questions answered and the patient verbalized understanding. Instructed the patient to schedule follow-up appointment in 2 weeks. Orders: Orders Prolactin Today N93.9 - Abnormal uterine and vaginal bleeding, unspecified Complete Blood Count no Diff Today N93.9 - Abnormal uterine and vaginal bleeding, unspecified TSH reflex Free T4 Today N93.9 - Abnormal uterine and vaginal bleeding, unspecified HCG Quantitative Today N93.9 - Abnormal uterine and vaginal bleeding, unspecified Coding Level of Care Code Est Pt Level 3 (65228) Diagnoses Polyp of endometrium N84.0 Abnormal uterine bleeding N93.9
== END 2024-01-04 07:41 | disposition home or self-care (01) ==
LOC: HO.HWS 07:16
PROVIDERS: Visit Provider Obstetrics & Gynecology
DX: N84.0 Polyp of corpus uteri (principal); N93.9 Abnormal uterine and vaginal bleeding, unspecified
CPT/HCPCS: 99213

== ENCOUNTER 2024-01-04 07:16 | Outpatient (REF) | payer OTHER, SELFPAY ==
[2024-01-04 08:06] LABS: Hematocrit 38.5 % (37.0-47.0); Hemoglobin 12.9 g/dl (12.0-16.0); Mean Corpuscular HGB Conc 33.5 g/dl (31.0-35.0); Mean Corpuscular Hemoglobin 32.7 pg (27.0-33.0); Mean Corpuscular Volume 97.7 fL (80.0-98.0); Mean Platelet Volume 9.4 fL (9.4-12.3); Platelet Count 279 X10*3/uL (160-400); Red Blood Count 3.94 X10*6/uL (4.20-5.50); Red Cell Distribution Width 11.5 % (11.0-16.0); White Blood Count 9.2 X10*3/uL (4.8-10.8)
[2024-01-04 09:02] LABS: HCG Quantitative < 2 mIU/mL; TSH reflex Free T4 1.43 uIU/mL (0.32-4.0)
[2024-01-05 09:14] LABS: Prolactin 10.5 ng/mL
== END 2024-01-04 07:17 | disposition home or self-care (01) ==
LOC: HO.LAB 07:16
PROVIDERS: PCP Internal Medicine; Visit Provider Obstetrics & Gynecology
DX: N84.0 Polyp of corpus uteri (principal); N93.9 Abnormal uterine and vaginal bleeding, unspecified
CPT/HCPCS: 36415; 84146; 84443; 84702; 85027; 99212

== ENCOUNTER 2024-01-12 08:47 | Day surgery (SDC) | payer OTHER, SELFPAY ==
[2024-01-10 09:30] VITALS: BMI 19.5
--- NOTE | 2024-01-10 15:07 | P.CONAN_ITS ---
Documented by User: Vanessa Norris NP 01/10/24 15:07 HPI - Anesthesia Eval Consult details Narrative: 28yo F for D&C Hysteroscopy,possible myomectomy,possible polypectomy PMFSH Active Problems Active Problems: All Active Problems (Updated 01/04/24 @ 07:42 by Saman Aguilar MD) Abnormal uterine bleeding (Acute) Polyp of endometrium (Acute) Annual physical exam (Acute) Irregular menstrual cycle (Acute) control counseling (Acute) Potential exposure to STD (Acute) Cervical cancer screening (Acute) Well woman exam with routine gynecological exam (Acute) Right ankle sprain (Acute) STD (female) (Acute) Chlamydia infection (Acute) Bacterial vaginosis (Acute) Gonorrhea (Acute) Pelvic pain in female (Acute) IUD surveillance (Acute) Pelvic inflammatory disease (PID) (Acute) Past Medical History Medical History (Updated 01/04/24 @ 07:42 by Saman Aguilar MD) Pelvic inflammatory disease (PID) ADHD Family History Family History Father Chronic mental illness Mother Asthma Maternal Grandmother Breast cancer Maternal Grandfather HTN (hypertension) Maternal Aunt Breast cancer Surgical History Surgical History (Updated 01/10/24 @ 09:31 by Mayra Ulloa RN) Hx of hand surgery Social History Social History Alcohol intake: current Alcohol intake frequency: holidays/special occasions only Patient Tobacco Use Status: Current someday Tobacco user Use of substances other than those prescribed or required for medical reasons: No Are you DNR?: No Advance Directives: No Advance Directives Information Provided: Yes Current occupational status: employed 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[employer] Sexual orientation: Straight/Heterosexual Gender identity: Female Meds Allergies Allergy/AdvReac Type Severity Reaction Status Date / Time Seasonal Allergies Allergy Runny Nose Verified 01/04/24 07:22 Home Medications Medication Instructions Recorded Confirmed Last Taken Type No Known Home Meds 01/04/24 01/10/24 Unknown History Exam Height,Weight and Vital Signs: Height 5 ft Weight 45.359 kg Assessment and Plan Assessment Anesthesia Assessment: Chart Reviewed Documented by User: Thony Catalan MD 01/12/24 09:27 [facility] Past Medical History Medical History (Updated 01/04/24 @ 07:42 by Saman Aguilar MD) Pelvic inflammatory disease (PID) ADHD Patient : No Family History Family History Father Chronic mental illness Mother Asthma Maternal Grandmother Breast cancer Maternal Grandfather HTN (hypertension) Maternal Aunt Breast cancer Family history of problems with anesthesia: No Surgical History Surgical History (Updated 01/10/24 @ 09:31 by Mayra Ulloa RN) Hx of hand surgery History of Problems with Anesthesia: No Social History Social History Alcohol intake: current Alcohol intake frequency: holidays/special occasions only Patient Tobacco Use Status: Current someday Tobacco user Use of substances other than those prescribed or required for medical reasons: No Are you DNR?: No Advance Directives: No Advance Directives Information Provided: Yes Current occupational status: employed 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 Assessment and Plan Assessment Anesthesia Assessment: Anesthesia Plan Discussed Final Anesthetic Review Family History of Problems with Anesthesia: No History of Problems with Anesthesia: No NPO: Yes ASA Class: II Final Preanesthetic Review: No Changes in Pt Med Stat, Meds/Allgs Chart Re viewed, Consent Obtained/Reviewed and Anes Risks/Benef Reviewed Patient Risk: Intermediate Procedure Risk: Low Anesthetic Plan Anesthetic Plan: GA and Agree w/ Assess. and Plan Disposition: Standard PACU
[2024-01-12] VITALS (10 sets, daily range): BP systolic 106–115; BP diastolic 62–79; PULSE 57–81; RESP 16–18; TEMP 36.3–36.6; O2SAT 98–100; BMI 19.6
[2024-01-12 09:04] LABS: UPreg QC Valid YES; Urine Pregnancy NEGATIVE (NEGATIVE)
--- NOTE | 2024-01-12 09:05 | MHC.SHP ---
Pre-Procedural Eval Section A - 24 Hr Update-Section A only Date of Service: 01/12/24 The patient is an INPATIENT: No Changes since office visit: No Cold of Flu in the past 2 weeks, No New Medical Problems, No Changes in Medication and No Patient answered all questions The patient has been examined within 24 hours of the surgical procedure. The History & Physical has been completed within 30 days and I have reviewed it.: Yes Section B - Complete if H&P > 30 days Chief Complaint: Polyp of corpus uteri Allergies: Allergies Allergy/AdvReac Type Severity Reaction Status Date / Time Seasonal Allergies Allergy Runny Nose Verified 01/04/24 07:22 Plan Diagnosis/Plan: Unchanged I have reviewed the history and physical and performed a pertinent physical examination on my patient. No changes have occurred unless specified. Time Spent With Patient Time: Total time managing care of this patient today ____ minutes.
[2024-01-12] MEDS: Lactated Ringers 1,000 ML 100 ML IVCONT (09:19)
--- NOTE | 2024-01-12 10:00 | P.BOP_ITS ---
Brief Operative Note Date of Service: 01/12/24 Pre-op diagnosis: 0.8 x 0.7 cm Endometrial polyp by ultrasound Post-op diagnosis: same (Endometrial polyp) Procedure: Hysteroscopy D&C, Polypectomy Surgeon: Saman Aguilar MD Anesthesia: GLMA Was an Training Representative used for this Procedure?: No Estimated blood loss (mL): 0 Pathology: other (Endometrial Scrapping. Polyp) Condition: stable Disposition: PACU
--- NOTE | 2024-01-12 10:01 | P.OP_ITS ---
Operative Note Operative Note Date of Service: 01/12/24 Narrative: Preop Diagnosis: Endometrial polyp by US Operation: Diagnostic Hysteroscopy, Dilataion & Curettage and polypectomy Post Op Diagnosis: Endometrial Polyp QBL: Minimal Anesthesia: GLMA Surgeon: Saman Aguilar MD Medical Coding Manager: None Complication: None Pathology: Endometrial Scrapings, Endometrial polyp Procedure: The patient was put in the dorsal lithotomy position, scrubbed, and draped in the usual manner. A sterile speculum was inserted in the patient's vagina. The anterior lip of the cervix was grasped with a single tooth tenaculum. The cervix was dilated up to 5 mm, then the scope was inserted in the patient's uterus. Inspection revealed endometrial polyp. The Myosure Reach device was used; it was introduced through the operative channel and polypectomy done with no complications. The scope was then taken out from the uterine cavity, sharp curettings was carried on with minimal to moderate amount of tissues retrieved. At the end of the procedure, all instruments were taken out of the patient uterine and vaginal cavity. The single tooth tenaculum was removed and homeostasis was assured using pressure,. The patient tolerated the procedure well and was transferred to the PACU in a stable condition.
[2024-01-12] MEDS: Acetaminophen 325 MG TABLET 650 MG PO (10:08)
[2024-01-12] MEDS: fentaNYL citrate/PF 100 MCG/2 ML VIAL 25 MCG IVPUSH ×2 (10:09→10:28)
[2024-01-12] MEDS: oxyCODONE HCl Immed Release 5 MG TABLET PO (10:09)
== END 2024-01-12 11:32 | disposition home or self-care (01) ==
PROVIDERS: PCP Internal Medicine; Visit Provider Obstetrics & Gynecology
PROC: 0UDB8ZZ Extraction of Endometrium, Via Natural or Artificial Opening Endoscopic (ICD-10-PCS; CPT 58558; principal; 2024-01-12 12:30)
DX: N84.0 Polyp of corpus uteri (principal); N93.9 Abnormal uterine and vaginal bleeding, unspecified; N73.9 Female pelvic inflammatory disease, unspecified; F90.9 Attention-deficit hyperactivity disorder, unspecified type; J30.2 Other seasonal allergic rhinitis; F17.200 Nicotine dependence, unspecified, uncomplicated
CPT/HCPCS: 58558; 81025; 88305; J1885; J2405; J2704; J3010

== ENCOUNTER → 2024-01-12 08:47 | Outpatient (BNV) | payer OTHER, SELFPAY | PROVIDERS: PCP Internal Medicine; Visit Provider Obstetrics & Gynecology | DX: N84.0 Polyp of corpus uteri (principal) | CPT/HCPCS: 58558 ==

== ENCOUNTER 2024-01-29 08:23 | Outpatient (AMB) | payer OTHER, SELFPAY ==
[2024-01-29 08:32] VITALS: BP 106/64; BMI 19.5
--- NOTE | 2024-01-29 08:32 | A.OFFVIS_ITS ---
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 The pathology showed the following: A. Endometrium, curettage: Benign proliferative endometrium; no atypia or carcinoma. B. Endometrial polyp, resection: Fragments compatible with benign endometrial polyp; no atypia or carcinoma The following workup for AUB was done.: H&H= 12.9/38.5 TSH, prolactin, hCG, GC and chlamydia were negative. Pap smear was done in 02/02 was negative. Pelvic ultrasound showed the following: Uterus: The uterus is anteverted and measures 8.3 x 3.9 x 5.2 cm. No focal fibroid. The endometrial thickness is 0.8 mm. Question 0.8 x 0.7 x 0.4 cm endometrial polyp. Adnexa: There is no ovarian torsion. There is no pelvic ascites or fluid collection. Right ovary measures 3.9 x 2.1 x 2.4 cm. Volume 10.3 mL. Question resolving 1.7 x 1.1 x 1.3 cm corpus luteum. Left ovary measures 2.4 x 2.1 x 2.2 cm. Volume 5.8 mL. 0.7 x 0.6 x 0.7 cm small versus resolving resolving hemorrhagic cyst. 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 Sexual orientation: Straight/Heterosexual Gender identity: Female Female Reproductive History Menstrual Age of Menarche: 14 Duration of menses: 3-5 days Date of last menstrual period: 01/07/24 control method: none Review of Systems Const All systems reviewed & are unremarkable except as noted in HPI and below Reports as per HPI and Reports no additional complaints GI Reports no additional complaints Reports no additional complaints Physical Exam Vital Signs: Last Vital Signs BP 106/64 01/29/24 08:32 BMI result Body Mass Index 19.5 Assessment & Plan Assessment & Plan (1) Polyp of endometrium: Comment: Status post hysteroscopic polypectomy Code(s): N84.0 - Polyp of corpus uteri Plan: Discussed with the patient the intraoperative finding and the pathology report. All questions answered, the patient verbalized understanding (2) Abnormal uterine bleeding: Code(s): N93.9 - Abnormal uterine and vaginal bleeding, unspecified Plan: Discussed with the patient the results of the work up done and options of treatment including control pills , Mirena IUD, cyclic Provera. All pros, cons, risks and benefits if each option was discussed with the patient and the patient decided to go ahead with [facility] so a more detailed discussion re: control pills including mechanism of action, benefits (regular menses, less dysmenorrhea, less risk of ovarian cancer, ...), risks ( DVT, PE, Strokes, ME, ? increased breast ca, others). Instructions were given to use a back- up method for contraception x 1st 2 weeks, and to schedule a 3 months appointment for blood pressure check Medications: New desogestrel-ethinyl estradiol 0.15-0.03 mg (Apri) 1 tab PO DAILY 28 days 28 tabs 3RF Coding Level of Care Code Est Pt Level 3 (58631) Diagnoses Polyp of endometrium N84.0 Abnormal uterine bleeding N93.9
== END 2024-01-29 08:39 | disposition home or self-care (01) ==
LOC: HO.HWS 08:23
PROVIDERS: PCP Internal Medicine; Visit Provider Obstetrics & Gynecology
DX: N84.0 Polyp of corpus uteri (principal); N93.9 Abnormal uterine and vaginal bleeding, unspecified
CPT/HCPCS: 99213

== ENCOUNTER → 2024-01-29 08:23 | Outpatient (BNVA) | payer OTHER, SELFPAY | PROVIDERS: PCP Internal Medicine; Visit Provider Obstetrics & Gynecology | DX: N93.9 Abnormal uterine and vaginal bleeding, unspecified (principal); N84.0 Polyp of corpus uteri | CPT/HCPCS: 99212 ==

== ENCOUNTER 2024-04-30 08:59 | Outpatient (REF) | payer OTHER, SELFPAY ==
[2024-05-01 04:14] LABS: CT PCR NOT DETECTED (Not Detect.); NG PCR NOT DETECTED (Not Detect.)
[2024-05-01 08:51] LABS: Bacterial Vaginosis PCR POSITIVE (Negative); Candida Group PCR DETECTED (Not Detect); Candida glab krusei PCR NOT DETECTED (Not Detect); Trichomonas vaginalis PCR NOT DETECTED (Not Detect)
== END 2024-04-30 09:00 | disposition home or self-care (01) ==
LOC: HO.LNP 08:59
PROVIDERS: PCP Internal Medicine; Visit Provider Obstetrics & Gynecology
DX: B37.31 Acute candidiasis of vulva and vagina (principal); N83.209 Unspecified ovarian cyst, unspecified side
CPT/HCPCS: 0352U; 0353U; 99212

== ENCOUNTER 2024-04-30 08:59 | Outpatient (AMB) | payer OTHER, SELFPAY ==
--- NOTE | 2024-04-30 09:13 | A.OFFVIS_ITS ---
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 The patient did not start this control pills, is having regular menstrual cycles and is not interested in starting them. Also the patient is complaining of vulvovaginal discharge associated with vulvovaginal itching with no odor. Last ultrasound done 10/12/2023 showed the following: IMPRESSION: 1. Question of 0.8 cm endometrial polyp. 2. Question of resolving 1.7 cm corpus luteum in the right ovary. 3. 0.7 cm small versus resolving hemorrhagic cyst in the left ovary. 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 Sexual orientation: Straight/Heterosexual Gender identity: Female Female Reproductive History Menstrual Age of Menarche: 14 Date of last menstrual period: 04/07/24 Review of Systems Const All systems reviewed & are unremarkable except as noted in HPI and below Physical Exam General: Yes no CVA tenderness External Female Exam: normal external appearance and normal appearance of the urethra Speculum Exam - Vagina: normal appearance of the vagina, normal palpation, no lesions and no masses Speculum Exam - Cervix: normal appearance of the cervix, normal palpation, no lesions, no masses and nontender Bimanual exam- vagina & uterus: normal bimanual exam, normal palpation, uterine size normal, normal palpation, uterine shape normal, No Cervical tenderness present and non-tender Bimanual Exam- Adnexa, other: normal adnexae Back/Spine/Pelvis Back: no CVA tenderness Assessment & Plan Assessment & Plan (1) Ovarian cyst: Code(s): N83.209 - Unspecified ovarian cyst, unspecified side Category: Medical Plan: Will repeat ultrasound. Instructions given the patient to schedule an ultrasound follow-up appointment within 2 weeks. (2) Vulvovaginitis due to Leeann: Code(s): B37.31 - Acute candidiasis of vulva and vagina Category: Medical Plan: GC/CT, Bacterial Vaginosis panel taken, Terazol 0.8% q.h.s. for 3 days was sent to the patient's pharmacy. The patient was instructed to call if symptoms don't improve in 48 hours. Orders: Orders US pelvic and transvaginal Today N83.209 - Unspecified ovarian cyst, unspecified side Medications: New terconazole 0.8% 1 appful vaginal BEDTIME 3 days 20 grams 0RF Coding Level of Care Code Est Pt Level 3 (99620) Diagnoses Ovarian cyst N83.209 Vulvovaginitis due to Leeann B37.31
[2024-04-30 09:16] VITALS: BP 110/68; BMI 19.4
== END 2024-04-30 09:40 | disposition home or self-care (01) ==
PROVIDERS: PCP Internal Medicine; Visit Provider Obstetrics & Gynecology
DX: N83.209 Unspecified ovarian cyst, unspecified side (principal); B37.31 Acute candidiasis of vulva and vagina
CPT/HCPCS: 99213

== ENCOUNTER 2024-05-08 10:37 | Outpatient (REF) | payer OTHER, SELFPAY ==
--- NOTE | ~2024-05-08 | US_ITS ---
EXAMINATION: US PELVIS CLINICAL INFORMATION: Ovarian cyst; the last menstrual period was on 05/07/2024. COMPARISON: None available. TECHNIQUE: Ultrasound of the pelvis is performed using both transabdominal and transvaginal transducers along with Doppler. Transvaginal imaging is performed due to inadequate visualization transabdominally. FINDINGS: Uterus: The uterus is retroverted and retroflexed. The uterus measures 8.4 x 3.3 x 4.9 cm. The double wall endometrial thickness is mm. The uterus is smooth in contour and has normal myometrial echogenicity. No visible fibroid. Adnexa: Both ovaries are visualized. There is normal color flow to the adnexa. There is no ovarian torsion. There is no pelvic ascites or fluid collection. The right ovary measures 2.8 x 2.1 x 2.2 cm, volume 9.2 mL. The right ovary contains a 1.4 x 0.8 x 1.3 cm hypoechoic collection with peripheral color Doppler flow. This likely represents a resolving corpus luteum cyst. The left ovary measures 3.7 x 2.6 x 3.2 cm, volume 16.1 mm. The left ovary contains a 2.0 x 1.8 x 2.5 cm corpus luteum cyst. US/US pelvic and transvaginal IMPRESSION: There are bilateral ovarian corpus luteum cysts, which require no imaging follow-up.
== END 2024-05-08 10:38 | disposition home or self-care (01) ==
LOC: HO.US 10:37
PROVIDERS: PCP Internal Medicine; Visit Provider Advanced Practice Midwife
DX: N83.209 Unspecified ovarian cyst, unspecified side (principal)
CPT/HCPCS: 76830; 76856

== ENCOUNTER 2024-06-06 09:54 | Outpatient (AMB) | payer OTHER, SELFPAY ==
--- NOTE | 2024-06-06 09:59 | A.OFFVIS_ITS ---
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 Pelvic ultrasound showed the following: Uterus: The uterus is retroverted and retroflexed. The uterus measures 8.4 x 3.3 x 4.9 cm. The double wall endometrial thickness is mm. The uterus is smooth in contour and has normal myometrial echogenicity. No visible fibroid. Adnexa: Both ovaries are visualized. There is normal color flow to the adnexa. There is no ovarian torsion. There is no pelvic ascites or fluid collection. The right ovary measures 2.8 x 2.1 x 2.2 cm, volume 9.2 mL. The right ovary contains a 1.4 x 0.8 x 1.3 cm hypoechoic collection with peripheral color Doppler flow. This likely represents a resolving corpus luteum cyst. The left ovary measures 3.7 x 2.6 x 3.2 cm, volume 16.1 mm. The left ovary contains a 2.0 x 1.8 x 2.5 cm corpus luteum cyst. 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 Sexual orientation: Straight/Heterosexual Gender identity: Female Female Reproductive History Menstrual Age of Menarche: 14 Review of Systems Const All systems reviewed & are unremarkable except as noted in HPI and below Reports as per HPI and Reports no additional complaints GI Reports no additional complaints Reports no additional complaints Assessment & Plan Assessment & Plan (1) Ovarian cyst: Comment: bilateral Code(s): N83.209 - Unspecified ovarian cyst, unspecified side Category: Medical Plan: Discussed with the patient the bilateral complex ovarian cyst by ultrasound possible right side resolving colpo luteum cyst with left side a colpo luteum cyst . Discussed with the patient the Ultrasound findings, the main limitation of transvaginal ultrasonography alone as a diagnostic tool to distinguish benign from malignant masses relates to its lack of specificity and low positive predictive value for cancer. The differential diagnosis discussed with the patient includes the following but not limited to: benign and malignant gynecological and non-gynecological causes. Discussed with the patient options of treatment including laparoscopy ovarian cystectomy vs. expectant management with repeat US in repeating pelvic US in 6 weeks from previous US. If the ovarian complex cyst is persistent larger and / or more complex looking will refer to gynecologic Oncology. All pros, cons, risks and benefits of each approach were discussed with the patient including but not limited to a delay in the diagnosis and treatment of ovarian cancer affecting the prognosis; The patient decided to go ahead with expectant management. Instructions given the patient to schedule a 2 week follow-up ultrasound appointment. All questions were answered & the patient verbalized understanding and agreed with the plan. Orders: Orders US pelvic and transvaginal 2 Weeks N83.209 - Unspecified ovarian cyst, un specified side Medications: Refilled terconazole 0.8% 1 appful vaginal BEDTIME 3 days 20 grams 0RF Coding Level of Care Code Est Pt Level 3 (83771) Diagnoses Ovarian cyst N83.209
[2024-06-06 10:04] VITALS: BMI 19.4
== END 2024-06-06 10:15 | disposition home or self-care (01) ==
LOC: HO.HWS 09:54
PROVIDERS: PCP Internal Medicine; Visit Provider Obstetrics & Gynecology
DX: N83.209 Unspecified ovarian cyst, unspecified side (principal)
CPT/HCPCS: 99213

== ENCOUNTER → 2024-06-06 09:54 | Outpatient (BNVA) | payer OTHER, SELFPAY | PROVIDERS: PCP Internal Medicine; Visit Provider Obstetrics & Gynecology | DX: N83.291 Other ovarian cyst, right side (principal); N83.292 Other ovarian cyst, left side | CPT/HCPCS: 99212 ==

== ENCOUNTER 2024-06-25 11:27 | Outpatient (REF) | payer OTHER, SELFPAY ==
--- NOTE | ~2024-06-25 | US_ITS ---
EXAMINATION: US PELVIS CLINICAL INFORMATION: Ovarian cyst COMPARISON: May 08, 2024 TECHNIQUE: Ultrasound of the pelvis is performed using both transabdominal and transvaginal transducers along with Doppler. Transvaginal imaging is performed due to inadequate visualization transabdominally. FINDINGS: Uterus: The uterus is anteverted and measures 8.5 x 3.7 x 5.1 cm. The double wall endometrial thickness is 0.5 mm. The uterus is smooth in contour and has normal myometrial echogenicity. No visible fibroid. Adnexa: Both ovaries are visualized. There is normal color flow to the adnexa. There is no ovarian torsion. There is no pelvic ascites or fluid collection. There is complex cystic lesion in left ovary measured 2.7 x 1.5 x 1.8 identical to the previous study. Right ovary measures 3.3 x 2.7 x 2.2 cm. With a volume 10.3 mL Left ovary measures 3.9 x 3.7 x 2.7 cm. With a volume of 20.4 mL There is no fluid in cul-de-sac US/US pelvic and transvaginal IMPRESSION: Unremarkable uterus and right adnexa. Complex cystic lesion in the left adnexa, similar to the previous study Electronically signed by: Vazquez Schreiber MD 07/05/2024 01:32 PM EDT
== END 2024-06-25 11:28 | disposition home or self-care (01) ==
LOC: HO.US 11:27
PROVIDERS: PCP Internal Medicine; Visit Provider Obstetrics & Gynecology
DX: N83.209 Unspecified ovarian cyst, unspecified side (principal)
CPT/HCPCS: 76830; 76856

== ENCOUNTER 2024-07-11 14:39 | Outpatient (AMB) | payer OTHER, SELFPAY ==
[2024-07-11 14:45] VITALS: BP 110/60; BMI 19.3
--- NOTE | 2024-07-11 14:45 | MHC.OFFVIS ---
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 The double wall endometrial thickness is 0.5 mm. The uterus is smooth in contour and has normal myometrial echogenicity. No visible fibroid. Adnexa: Both ovaries are visualized. There is normal color flow to the adnexa. There is no ovarian torsion. There is no pelvic ascites or fluid collection. There is complex cystic lesion in left ovary measured 2.7 x 1.5 x 1.8 identical to the previous study. Right ovary measures 3.3 x 2.7 x 2.2 cm. With a volume 10.3 mL Left ovary measures 3.9 x 3.7 x 2.7 cm. 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 Sexual orientation: Straight/Heterosexual Gender identity: Female Female Reproductive History Menstrual Age of Menarche: 14 Date of last menstrual period: 06/07/24 control method: none Full term: 0 Review of Systems Const All systems reviewed & are unremarkable except as noted in HPI and below Reports as per HPI and Reports no additional complaints GI Reports no additional complaints Reports no additional complaints Physical Exam Vital Signs: Last Vital Signs BP 110/60 07/11/24 14:45 BMI result Body Mass Index 19.3 Assessment & Plan Assessment & Plan (1) Complex ovarian cyst: Code(s): N83.299 - Other ovarian cyst, unspecified side Category: Medical Plan: Discussed with the patient the results of ultrasound showing persistent left complex ovarian cyst similar to previous ultrasound done in 05/06. Discussed with the patient the Ultrasound findings, the main limitation of transvaginal ultrasonography alone as a diagnostic tool to distinguish benign from malignant masses relates to its lack of specificity and low positive predictive value for cancer. The differential diagnosis discussed with the patient includes the following but not limited to: benign and malignant gynecological and non-gynecological causes. Discussed with the patient options of treatment , including laparoscopy ovarian cystectomy/oophorectomy vs. MRI of the pelvis, If the ovarian complex cyst is persistent larger and / or more complex looking, by MRI will order ovarian cancer tumor marker and will refer to gynecologic Oncology. All pros, cons, risks and benefits of each approach were discussed with the patient including but not limited to a delay in the diagnosis and treatment of ovarian cancer affecting the prognosis; The patient decided to go ahead with expectant management. Instructions given the patient to schedule a 2 weeks follow-up MRI appointment. All questions were answered & the patient verbalized understanding and agreed with the plan. Orders: Orders MR pelvis wo/w con Today N83.299 - Other ovarian cyst, unspecified side Coding Level of Care Code Est Pt Level 3 (13477) Diagnoses Complex ovarian cyst N83.299
== END 2024-07-11 15:10 | disposition home or self-care (01) ==
LOC: HO.HWS 14:39
PROVIDERS: PCP Internal Medicine; Visit Provider Obstetrics & Gynecology
DX: N83.299 Other ovarian cyst, unspecified side (principal)
CPT/HCPCS: 99213

== ENCOUNTER → 2024-07-11 14:39 | Outpatient (BNVA) | payer OTHER, SELFPAY | PROVIDERS: PCP Internal Medicine; Visit Provider Obstetrics & Gynecology | DX: N83.292 Other ovarian cyst, left side (principal) | CPT/HCPCS: 99212 ==

== ENCOUNTER 2024-07-28 12:34 | Outpatient (REF) | payer OTHER, SELFPAY ==
--- NOTE | ~2024-07-28 | MR_ITS ---
EXAMINATION: MRI PELVIS WITH AND WITHOUT CONTRAST CLINICAL INFORMATION: N83.299 - Other ovarian cyst, unspecified side COMPARISON: Pelvic ultrasound 06/25/2024 TECHNIQUE: Multiple routine MRI sequences through the pelvis were obtained on a high-field 1.5 Carmen MRI before and after the uneventful administration of 4 mL of Gadavist gadolinium-based IV contrast. FINDINGS: UTERUS: The uterus is anteverted. The uterus measures 9.5 x 4.7 x 4.5 cm. The junctional zone is preserved. The endometrial stripe measures 6 mm in thickness. No focal uterine mass is seen. CERVIX: Unremarkable. VAGINA: Unremarkable. RIGHT OVARY: The right ovary measures 2.4 x 3.0 x 3.4 cm. LEFT OVARY: The left ovary measures 3.4 x 2.7 x 3.0 cm. Precontrast T1 hyperintense 1.6 1.5 x 1.5 cm lesion with heterogeneous T2 shading is nonenhancing. KIDNEYS: Two normally positioned kidneys are seen. No hydronephrosis. BLADDER: Decompressed. PELVIC FREE FLUID: No significant free fluid or ascites. LYMPH NODES: No pathologically enlarged lymph nodes. MR/MR pelvis wo/w con IMPRESSION: 1.6 x 1.5 x 1.5 cm nonenhancing lesion in the left ovary likely representing endometrioma. Electronically signed by: Jerson Gupta MD 08/09/2024 09:34 AM EDT
[2024-07-28] MEDS: gadobutroL 7.5 ML VIAL IVPUSH (13:35)
== END 2024-07-28 12:35 | disposition home or self-care (01) ==
LOC: HO.MRI 12:34
PROVIDERS: PCP Internal Medicine; Visit Provider Obstetrics & Gynecology
DX: N83.299 Other ovarian cyst, unspecified side (principal)
CPT/HCPCS: 72197; A9585

== ENCOUNTER 2024-10-29 09:56 | Outpatient (AMB) | payer OTHER, SELFPAY ==
--- NOTE | 2024-10-29 09:57 | A.OFFVIS_ITS ---
Intake Visit Reasons: MRI Follow up, [facility] [phone] Allergies Seasonal Allergies Allergy (Verified 07/11/24 14:46) Runny Nose HPI Comments Details: The patient is schedule telehealth visit for MRI follow-up. Ultrasound done in 07/06 showed a complex right ovarian cyst. 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 Sexual orientation: Straight/Heterosexual Gender identity: Female Female Reproductive History Menstrual Age of Menarche: 14 Review of Systems Const All systems reviewed & are unremarkable except as noted in HPI and below Reports as per HPI and Reports no additional complaints GI Reports no additional complaints Reports no additional complaints Telehealth Telehealth Telehealth Platform: Telephone Location of provider rendering services: practice address Location of patient: address on file Patient Identification confirmed using: Name, : Yes Telehealth method: video Patient verbally consented to treatment: Yes Patient verbally consented to billing insurance company: Yes Patient informed of any privacy concerns related to visit: Yes Assessment & Plan Assessment & Plan (1) Endometrioma: Code(s): N80.129 - Deep endometriosis of ovary, unspecified ovary Category: Medical Plan: Discussed with the patient the findings on pelvic MRI showed endometrioma. Options of treatment discussed the patient include the following: Either surgical resection which provides a definitive diagnosis, symptom relief, and exclusion of malignancy. The Risks of surgical resection include potential decreased ovarian reserve after resection and standard surgical risks. The 2nd option discussed with the patient is to manage it through Observation which preserves ovarian function and avoids surgical risk. The risks of observation include lack of histologic diagnosis, inability to exclude malignancy, and potential for disease progression. The patient decided to proceed with expectant management, will order pelvic ultrasound in 3 months. All questions answered, the patient verbalized understanding. I spent a total of 20 minutes reviewing the chart, talking to the patient via video and documenting in the medical record. Orders: Orders US pelvic and transvaginal 3 Months N80.129 - Deep endometriosis of ovary, unspecified ovary Coding Level of Care Code Tele Est Pt Level 3 (73166) Diagnoses Endometrioma N80.129
== END 2024-10-29 10:18 | disposition home or self-care (01) ==
LOC: HO.HWS 09:56
PROVIDERS: PCP Internal Medicine; Visit Provider Obstetrics & Gynecology
DX: N80.129 Deep endometriosis of ovary, unspecified ovary (principal)
CPT/HCPCS: 99213

== ENCOUNTER 2024-12-05 08:32 | Emergency (ER) | payer OTHER, SELFPAY ==
--- NOTE | ~2024-12-05 | XR_ITS ---
EXAMINATION: XR CHEST CLINICAL INFORMATION: cp COMPARISON: None available. TECHNIQUE: Frontal view of the chest was obtained. FINDINGS: The lungs are hyperinflated with patchy opacity right lung base question focal atelectasis versus infiltrate. Rest lungs are clear. The heart size and perivascular is normal. There is mild dextro scoliosis mid dorsal spine. XR/XR chest 1V IMPRESSION: Hyperinflated lungs with patchy opacity right lower lobe question atelectasis versus focal infiltrate Electronically signed by: Ramsey Martinez MD 12/05/2024 10:23 AM [facility]
--- NOTE | 2024-12-05 08:33 | ECG_ITS ---
Test Reason : chest pain Blood Pressure : */* mmHG Vent. Rate : 87 BPM Atrial Rate : 87 BPM P-R Int : 176 ms QRS Dur : 80 ms QT Int : 354 ms P-R-T Axes : 16 68 38 degrees QTcB Int : 425 ms Normal sinus rhythm Normal ECG No previous ECGs available Referred By: Generic ED Physician Electronically Signed By: ANI ESTEBAN MD
[2024-12-05 08:54] VITALS: BP 125/79; PULSE 94; RESP 18; TEMP 36.7; O2SAT 100; BMI 18.6
[2024-12-05 08:54] LABS: MANUAL DIFF FLAG NO
[2024-12-05 09:07] LABS: Basophils Percent Auto 0.3 % (0-2); Eosinophils Absolute Auto 0.1 X10*3/uL (0.0-0.4); Eosinophils Percent Auto 0.5 % (0-4); Hematocrit 39.9 % (37.0-47.0); Hemoglobin 13.5 g/dl (12.0-16.0); Imm Gran Abs Auto 0.12 X10*3/uL (0.00-0.03); Imm Gran Pct Auto 0.9 % (0.0-0.4); Lymphocytes Absolute Auto 1.8 X10*3/uL (1.2-4.9); Lymphocytes Percent Auto 13.2 % (20-40); Mean Corpuscular HGB Conc 33.8 g/dl (31.0-35.0); Mean Corpuscular Hemoglobin 32.8 pg (27.0-33.0); Mean Corpuscular Volume 97.1 fL (80.0-98.0); Mean Platelet Volume 9.7 fL (9.4-12.3); Monocytes Absolute Auto 0.6 X10*3/uL (0.1-1.2); Monocytes Percent Auto 4.2 % (2-11); Neutrophils Percent Auto 80.9 % (45-73); Platelet Count 233 X10*3/uL (160-400); Red Blood Count 4.11 X10*6/uL (4.20-5.50); Red Cell Distribution Width 12.1 % (11.0-16.0); White Blood Count 13.7 X10*3/uL (4.8-10.8)
[2024-12-05 09:16] LABS: Alanine Aminotransferase 19 U/L (0-31); Albumin Level 4.1 g/dL (3.5-5.0); Alkaline Phosphatase 57 U/L (39-117); Anion Gap 9 (12-20); Aspartate Amino Transferase 22 U/L (5-31); Bilirubin Total 0.4 mg/dL (0.0-1.0); Blood Urea Nitrogen 12 mg/dL (9-16); Carbon Dioxide 25 mmol/L (22-29); Chloride 111 mmol/L (96-108); Creatinine Clr Calc Pharmacy 80.9; Estimated Glomerular Filt Rate > 60; Glucose Random 92 mg/dL (60-115); Potassium 3.8 mmol/L (3.3-5.1); Sodium 141 mmol/L (135-145); Total Protein 7.1 g/dL (6.5-8.0)
[2024-12-05 09:25] LABS: Troponin-I High Sensitivity < 2.7 ng/L (<3.5-17.0)
[2024-12-05 09:54] LABS: Influenza A PCR NEGATIVE (Negative); Influenza B PCR NEGATIVE (Negative); Resp Syncy Virus RNA Qual PCR NEGATIVE (Negative); SARS COV2 PCR INHOUSE NEGATIVE (Negative)
--- NOTE | 2024-12-05 10:30 | ED.CHESTPAIN ---
HPI - Chest Pain General Chief Complaint: Chest Pain Stated Complaint: chest pain diff breathing Time Seen by Provider: 12/05/24 09:35 Source: patient Mode of arrival: ambulatory Limitations: no limitations History of Present Illness HPI narrative: This is a 29-year-old female with no reported past medical history who presents for evaluation of chest pain. Patient states that she is getting over cold. She reports associated cough and congestion. She states no hemoptysis. She states no dyspnea. She reports having pain on her chest when breathing. She states no GI or symptoms. She states no recent fevers. She states no trauma or surgery in the last month. She states no history of DVT or PE. She states taking no control or hormone use. She states no leg swelling or pain. she states no abdominal pain or back pain. She states that she smokes cigarettes. She states no illicit or recreationaldrug use. Related Data Previous Rx's ?Medication ?Instructions ?Recorded amoxicillin 875 mg-potassium 1 tab PO BID 5 days #10 tabs 12/05/24 clavulanate 125 mg tablet azithromycin 250 mg tablet 250 mg PO DAILY 5 days #5 tabs 12/05/24 Allergies Allergy/AdvReac Type Severity Reaction Status Date / Time Seasonal Allergies Allergy Runny Nose Verified 12/05/24 08:55 Review of Systems Review of Systems: ROS as per HPI [facility] Past Medical History Medical History Pelvic inflammatory disease (PID) ADHD Surgical History Hx of hand surgery Family History Family History Father Chronic mental illness Mother Asthma Maternal Grandmother Breast cancer Maternal Grandfather HTN (hypertension) Maternal Aunt Breast cancer Social History Social History Alcohol intake: current Alcohol intake frequency: holidays/special occasions only Patient Tobacco Use Status: Current someday Tobacco user Advance Directives: No Advance Directives Information Provided: Yes Do you have a plan to hurt others: No Plan Current occupational status: employed Current occupation: [employer] Sexual orientation: Straight/Heterosexual Gender identity: Female Physical Exam Vital Signs: Vital Signs: Last Vital Signs Temp 98.0 F 12/05/24 08:54 Pulse 94 12/05/24 08:54 Resp 18 12/05/24 08:54 BP 125/79 12/05/24 08:54 Pulse Ox 100 12/05/24 08:54 O2 Del Method Room Air 12/05/24 08:54 BMI result Body Mass Index 18.6 Gen: NAD, AOx3 HEENT: NCAT, EOMI, normal conjunctiva CV: RRR Pulm: CTAB, no increased work of breathing GI: Soft, NTND, no rebound, guarding or rigidity MSK: No asymmetrical calf edema/erythema /TTP Neuro: Grossly non focal Medical Decision Making Medical Decision Making MDM Narrative: Differential diagnosis includes, but is not limited to viral URI, bronchitis, pleuritis, pneumonia, pericarditis, myocarditis, pneumothorax. Patient is afebrile and hemodynamically stable on room air. Exam is benign and reassuring. I reviewed and interpreted labs, which are noncontributory. there is no troponin elevation effectively ruling out ACS and myocarditis. I reviewed and interpreted EKG, which is unremarkable for any acute findings. EKG demonstrates no ischemic findings for findings consistent with pericarditis. Chest x-ray as below with findings of pneumonia, which is likely etiology of patient's symptoms along with component of pleuritis. Patient was treated with ibuprofen, Tylenol, Augmentin and azithromycin. PERC 0. On re-examination, patient is well-appearing and in no acute distress. There is no indication for further emergent evaluation in this otherwise well-appearing patient as above. Patient is provided written and verbal instructions, educational materials, prescription for azithromycin and Augmentin, recommendations for outpatient follow-up, strict return precautions and teach back is performed. Patient states understanding and agreement with plan of care. Patient is discharged home in stable and improved condition. Admission/Observation Consideration of admission/observation: Escalation of care including admission/observation considered Lab Data [facility] Lab Attestation statement: I reviewed the patient's lab results. I independently reviewed and interpreted the patient's labs, which demonstrates leukocytosis with a white blood cell count of 13.7 otherwise metabolic panel and troponin are unremarkable. Patient is negative for COVID-19, influenza and RSV. 12/05/24 08:48 12/05/24 08:48 Labs: Lab Results 12/05/24 Range/Units 08:48 WBC 13.7 H (4.8-10.8) X10*3/uL RBC 4.11 L (4.20-5.50) X10*6/uL Hgb 13.5 (12.0-16.0) g/dl Hct 39.9 (37.0-47.0) % MCV 97.1 (80.0-98.0) fL MCH 32.8 (27.0-33.0) pg MCHC 33.8 (31.0-35.0) g/dl RDW 12.1 (11.0-16.0) % Plt Count 233 (160-400) X10*3/uL MPV 9.7 (9.4-12.3) fL Immature Gran % (Auto) 0.9 H (0.0-0.4) % Neut % (Auto) 80.9 H (45-73) % Lymph % (Auto) 13.2 L (20-40) % [place] % (Auto) 4.2 (2-11) % Eos % (Auto) 0.5 (0-4) % Baso % (Auto) 0.3 (0-2) % Lymph # (Auto) 1.8 (1.2-4.9) X10*3/uL [place] # (Auto) 0.6 (0.1-1.2) X10*3/uL Eos # (Auto) 0.1 (0.0-0.4) X10*3/uL Baso # (Auto) 0.0 (0.0-0.2) X10*3/uL Abs Immat Gran (auto) 0.12 H (0.00-0.03) X10*3/uL Absolute Neuts (auto) 11.0 H (2.0-8.3) x10*3/uL Absolute Nucleated RBC 0.000 (0.0-0.012) X10*3/uL Nucleated RBC % (auto) 0.0 (0.0-0.2) /100WBC Sodium 141 (135-145) mmol/L Potassium 3.8 (3.3-5.1) mmol/L Chloride 111 H (96-108) mmol/L Carbon Dioxide 25 (22-29) mmol/L Anion Gap 9 L (12-20) BUN 12 (9-16) mg/dL Creatinine 0.71 (0.5-1.4) mg/dL Estim Creat Clear Calc 80.9 Estimated GFR > 60 Random Glucose 92 (60-115) mg/dL Calcium 9.0 (8.4-10.2) mg/dL Total Bilirubin 0.4 (0.0-1.0) mg/dL AST 22 (5-31) U/L ALT 19 (0-31) U/L Alkaline Phosphatase 57 (39-117) U/L Troponin I High Sens < 2.7 (<3.5-17.0) ng/L Total Protein 7.1 (6.5-8.0) g/dL Albumin 4.1 (3.5-5.0) g/dL Influenza Type A (PCR) NEGATIVE (Negative) Influenza Type B (PCR) NEGATIVE (Negative) RSV RNA Qual (PCR) NEGATIVE (Negative) SARS-CoV-2 RNA (RT-PCR) NEGATIVE (Negative) Independent Interpretation I performed an independent interpretation of an: EKG Interpretation: I independently reviewed and interpreted the patient's EKG and chest x-ray. Chest x-ray demonstrates no pleural effusion or pneumothorax. EKG demonstrates sinus rhythm at 87 beats per minute, AK 176, QRS 80, QTC 425, no ST/T-wave changes, no STEMI Radiology Impression Discussion of test interpretation with radiology: I have reviewed the radiologist's reading. Radiologist Impression: XR/XR chest 1V IMPRESSION: Hyperinflated lungs with patchy opacity right lower lobe question atelectasis versus focal infiltrate Electronically signed by: Ramsey Martinez MD 12/05/2024 10:23 AM [facility] Dictated By: Ramsey Martinez MD Signed By: <Electronically signed by Ramsey Martinez MD in OV> 12/05/24 1023 Discharge Plan Discharge Clinical Impression: Pneumonia Patient Disposition: Home, Self-Care Instructions: Community Acquired Pneumonia (ED) Additional Instructions: You were seen and evaluated in the emergency room. Your vital signs were very reassuring. Your blood work and EKG were normal. Your chest x-ray was showed evidence of a right-sided pneumonia. You are started on antibiotics. Please take as directed and until completed. Please take 600mg ibuprofen with food AND water every 6 hours as needed for pain/fever. You can additionally take 1000mg Tylenol every 8 hours as needed for pain/fever. Please follow-up with your primary care doctor in the next 5-7 days. ? Please return to the emergency room if you develop any new or concerning symptoms. Prescriptions: New amoxicillin-pot clavulanate 875-125 mg tablet 1 tab PO BID 5 Days Qty: 10 0RF azithromycin 250 mg tablet 250 mg PO DAILY 5 Days Qty: 5 0RF Print Language: Latvian
[2024-12-05 10:39] VITALS: BP 125/79; PULSE 94; RESP 18; TEMP 36.7; O2SAT 100
[2024-12-05] MEDS: Acetaminophen 325 MG TABLET 975 MG PO (10:43)
[2024-12-05] MEDS: Ibuprofen 600 MG TABLET PO (10:43)
[2024-12-05] MEDS: Amoxicillin/Potassium Clav 875 MG TABLET PO (10:44)
[2024-12-05] MEDS: Azithromycin 500 MG TABLET PO (10:44)
== END 2024-12-05 10:50 | disposition home or self-care (01) ==
PROVIDERS: Emergency Provider Emergency Medicine; PCP Internal Medicine
DX: J18.9 Pneumonia, unspecified organism (principal); R07.9 Chest pain, unspecified; R05.9 Cough, unspecified; R09.89 Other specified symptoms and signs involving the circulatory and respiratory systems
CPT/HCPCS: 0241U; 71045; 80053; 84484; 85025; 93005; 99283; 99285

== ENCOUNTER → 2024-12-05 08:33 | Outpatient (BNV) | payer OTHER, SELFPAY | PROVIDERS: Emergency Provider Emergency Medicine; PCP Internal Medicine; Visit Provider Internal Medicine Cardiovascular Disease | DX: R07.9 Chest pain, unspecified (principal) | CPT/HCPCS: 93010 ==

== ENCOUNTER → 2024-12-05 09:10 | Outpatient (BNV) | payer OTHER, SELFPAY | PROVIDERS: Emergency Provider Emergency Medicine; PCP Internal Medicine; Visit Provider Radiology Diagnostic Radiology | DX: R91.8 Other nonspecific abnormal finding of lung field (principal) | CPT/HCPCS: 71045 ==

== ENCOUNTER 2025-01-27 11:08 | Outpatient (REF) | payer OTHER, SELFPAY ==
--- NOTE | ~2025-01-27 | US_ITS ---
CLINICAL HISTORY: N80.129 - Deep endometriosis of ovary, unspecified ovary US pelvis transabdominal and transvaginal Comparison: US/SR - US PELVIC AND TRANSVAGINAL - 06/25/24 11:47 EDT Findings: Transabdominal scanning performed for overall anatomy. Transvaginal scanning performed for additional detail. Anteverted uterus is 7.3 cm length. Normal myometrium. Endometrium 3 mm thickness. No lesions. Right ovary 3.6 x 1.4 x 1.8 cm. Left ovary 3.1 x 2.2 x 3.0 cm. Normal color Doppler of both ovaries. 2.5 x 1.8 x 1.9 cm complex cyst within the left ovary. This is decreased in size when compared to the prior study. There are multiple normal appearing follicles within the bilateral ovaries. No free fluid. IMPRESSION: 1. 2.5 cm complex left ovarian cyst, decreased in size when compared to the prior study. This document has been electronically signed by: Jeanie Olivera MD on 01/28/2025 15:35:55
== END 2025-01-27 11:09 | disposition home or self-care (01) ==
LOC: HO.US 11:08
PROVIDERS: PCP Internal Medicine; Visit Provider Obstetrics & Gynecology
DX: N80.129 Deep endometriosis of ovary, unspecified ovary (principal)
CPT/HCPCS: 76830; 76856

== ENCOUNTER → 2025-01-27 11:10 | Outpatient (BNV) | payer OTHER, SELFPAY | PROVIDERS: PCP Internal Medicine; Visit Provider Radiology Diagnostic Radiology | DX: N83.292 Other ovarian cyst, left side (principal) | CPT/HCPCS: 76830; 76856 ==

== ENCOUNTER 2025-01-31 13:17 | Outpatient (AMB) | payer OTHER, SELFPAY ==
--- NOTE | 2025-01-31 13:18 | MHC.OFFVIS ---
Intake Visit Reasons: Ultrasound results Allergies Seasonal Allergies Allergy (Verified 12/05/24 08:55) Runny Nose HPI Comments Details: The patient is schedule telehealth visit for ultrasound follow-up done on 01/28/2025 which showed the following: IMPRESSION: 1. 2.5 cm complex left ovarian cyst, decreased in size when compared to the prior study 07/05/2024 pelvic ultrasound showed the following: Uterus: The uterus is anteverted and measures 8.5 x 3.7 x 5.1 cm. The double wall endometrial thickness is 0.5 mm. The uterus is smooth in contour and has normal myometrial echogenicity. No visible fibroid. Adnexa: Both ovaries are visualized. There is normal color flow to the adnexa. There is no ovarian torsion. There is no pelvic ascites or fluid collection. There is complex cystic lesion in left ovary measured 2.7 x 1.5 x 1.8 identical to the previous study. Right ovary measures 3.3 x 2.7 x 2.2 cm. With a volume 10.3 mL Left ovary measures 3.9 x 3.7 x 2.7 cm. With a volume of 20.4 mL There is no fluid in cul-de-sac 07/28/2024 pelvic MRI showed the following: IMPRESSION: 1.6 x 1.5 x 1.5 cm nonenhancing lesion in the left ovary likely representing endometrioma. The patient is complaining of pelvic pain. [facility] Medical History Pelvic inflammatory disease (PID) ADHD Surgical History Hx of hand surgery Family History Father Chronic mental illness Mother Asthma Maternal Grandmother Breast cancer Maternal Grandfather HTN (hypertension) Maternal Aunt Breast cancer Social History Alcohol intake: current Alcohol intake frequency: holidays/special occasions only Patient Tobacco Use Status: Current someday Tobacco user Current occupational status: employed Current occupation: [employer] Sexual orientation: Straight/Heterosexual Gender identity: Female Female Reproductive History Menstrual Age of Menarche: 14 Review of Systems Const All systems reviewed & are unremarkable except as noted in HPI and below Reports as per HPI and Reports no additional complaints GI Reports no additional complaints Reports no additional complaints Telehealth Telehealth Telehealth Platform: Telephone Location of provider rendering services: practice address Location of patient: address on file Patient Identification confirmed using: Name, : Yes Telehealth method: video Patient verbally consented to treatment: Yes Patient verbally consented to billing insurance company: Yes Patient informed of any privacy concerns related to visit: Yes Minutes spent on Phone/Video with Pt.: 7 Assessment & Plan Assessment & Plan (1) Complex ovarian cyst: Comment: Likely Endometrioma by last MRI in 08/06 Code(s): N83.299 - Other ovarian cyst, unspecified side Category: Medical Plan: Discussed with the patient the finding on the latest pelvic ultrasound showing persistent left complex ovarian cyst 2.5 cm in size, MRI 08/06 was suggestive of endometrioma. Discussed with the patient the options of treatment including the following: Either surgical resection which provides a definitive diagnosis, symptom relief, and exclusion of malignancy. The Risks of surgical resection include potential decreased ovarian reserve after resection and standard surgical risks. The 2nd option discussed with the patient is to manage through observation which preserves ovarian function and avoids surgical risk. The risks of observation include lack of histologic diagnosis, inability to exclude malignancy, and potential for disease progression. The patient decided to proceed with surgical management. Will refer to [facility] for minimally invasive tab machine operator surgery. Instructed the patient to call our office back in case a referral appointment is not scheduled, missed or canceled so that we will assist on rescheduling another appointment, the patient verbalized understanding agreed with the plan. I spent a total of 20 minutes reviewing the chart, talking to the patient via video and documenting in the medical record. Coding Level of Care Code Tele Est Pt Level 3 (06876) Diagnoses Complex ovarian cyst N83.299
== END 2025-01-31 13:33 | disposition home or self-care (01) ==
LOC: HO.HWS 13:17
PROVIDERS: PCP Internal Medicine; Visit Provider Obstetrics & Gynecology
DX: N83.299 Other ovarian cyst, unspecified side (principal)
CPT/HCPCS: 99213

== ENCOUNTER → 2025-01-31 13:17 | Outpatient (BNVA) | payer OTHER, SELFPAY | PROVIDERS: PCP Internal Medicine; Visit Provider Obstetrics & Gynecology ==